=== PATIENT | male | born 1935 | race Caucasian/White ===

== ENCOUNTER → 2023-11-02 10:18 | Outpatient (REF) | payer MEDICARE, OTHER, SELFPAY | LOC: MRI 3T 10:18 | PROVIDERS: ATTENDING PHYSICIAN Physician Assistant; FAMILY PHYSICIAN Internal Medicine | DX: M54.16 Radiculopathy, lumbar region (principal) | CPT/HCPCS: 72148 ==

== ENCOUNTER → 2023-11-26 19:50 | Outpatient (REF) | payer MEDICARE, OTHER, SELFPAY | LOC: MRI 19:50 | PROVIDERS: ATTENDING PHYSICIAN Podiatrist Primary Podiatric Medicine; FAMILY PHYSICIAN Internal Medicine | DX: M86.171 Other acute osteomyelitis, right ankle and foot (principal) | CPT/HCPCS: 73718 ==

== ENCOUNTER → 2023-12-18 14:05 | Outpatient (REF) | payer MEDICARE, OTHER, SELFPAY | LOC: CLAB 14:05 | PROVIDERS: ATTENDING PHYSICIAN Student in an Organized Health Care Education/Training Program | DX: S92.222A Displaced fracture of lateral cuneiform of left foot, initial encounter for closed fracture (principal); S92.222B Displaced fracture of lateral cuneiform of left foot, initial encounter for open fracture | CPT/HCPCS: 88305 ==

== ENCOUNTER 2024-01-23 00:56 | Emergency (ER) | payer MEDICARE, OTHER, SELFPAY ==
[2024-01-23 01:10] VITALS: BP 151/83
--- NOTE | 2024-01-23 01:53 | ED.GENMED ---
History of Present Illness
General
Chief Complaint: Skin Problem
Source: patient, records and spouse
Exam Limitations: none
Time Seen by Provider: 01/23/24 01:33
Nursing documentation reviewed up to this point in time: agreed with
Travel History
Have you had any contact with someone who has COVID-19?: No
Do you have any symptoms of coronavirus? Fever > 100 degrees, chills, cough, shortness of breath, sore throat, loss of taste or smell, muscle aches, or headache?: No
History of Present Illness
History of Present Illness:
Patient is a 88-year-old diabetic male who presents to the emergency department with sudden onset of redness and swelling of his right leg approximately 3 to 4 hours ago. In October of this year on his right second toe the end of it was amputated
secondary to infection. Patient has done well since then. Patient states that sugars have been normal. Patient denies any nausea, vomiting. Patient has a good appetite. Patient denies any fever or chills. Patient denies any injuries although
he did have a tick that he removed from his right leg 3 to 4 days ago. Otherwise the patient denies any previous history or recent injuries.
Past History
Past History
ED Past Medical History: GERD, HTN, Hypercholesterolemia, NIDDM and Other (PNA, sleep apnea, BPH, kidney stones, diabetic neuropathy)
ED Past Surgical History: Orthopedic (Back surgery, Left Total knee) and Other (Rectal surgery)
Social History
Tobacco: Non-smoker
Alcohol: Occasional
Drug: None
Personal:
Living: with family
Review of Systems
Review of Systems
All Other Systems: ROS reviewed and negative except as documented in HPI and ROS
Constitutional: Reports no symptoms; Denies fever or chills
Respiratory: Reports no symptoms
Cardiac: Reports no symptoms
ABD/GI: Reports no symptoms
: Reports no symptoms
Musculoskeletal: Reports no symptoms
Skin: Reports other (Redness and swelling of his right lower leg)
Hematologic/Lymphatic: Reports no symptoms
Phy Exam
Physical Exam
Physical Exam:
Physical Exam
General: No apparent distress, alert and appropriate, well nourished, well hydrated
HENT: Normocephalic, supple with no lymphadenopathy, no thyromegaly
Eyes: Clear sclera, conjuctiva without injection
Heart: Regular rhythm and rate. No S3, S4. No murmur.
Lungs: No respiratory distress, no stridor, lung sounds clear and equal bilaterally
Abdomen: Soft, nontender, BS good
Neuro: Alert and oriented x 3, CN II - XII intact, no motor focality
Skin: no rash. Erythema of the right lower leg in a stocking fashion. On the dorsal, distal right second toe is an open area without erythema
Psychiatric: well kept. interactive and cooperative
Extremities: No cyanosis, tenderness, Good and equal peripheral pulses. Swelling of the right lower leg.
Scores
Heart Failure Risk
Heart Failure Risk Score: Not Applicable
Heart Score for Chest Pain Patients
STEMI patient?: Not applicable
Withdrawal Assessment of Alcohol
Withdrawal Assessment Completed?: Not applicable
Course
Orders/Labs/Results
Orders:
Orders
01/23/24 02:49
Complete Blood Count/With Diff Urgent
Comprehensive Metabolic Panel Urgent
[facility] Progressive Urgent
01/23/24 03:32
Doxycycline [Vibramycin] 100 mg PO NOW STA
Abnormal Lab Results
01/23/24
02:49
WBC 11.0 H 10^3/uL
(4.8-10.8)
RBC 4.54 L 10^6/uL
(4.70-6.10)
MCV 95.8 H fL
(80.0-94.0)
MCH 31.5 H pg
(27.0-31.0)
MCHC 32.9 L g/dL
(33.0-37.0)
MPV 10.8 H fL
(7.4-10.4)
Absolute Neuts (auto) 7.9 H 10^3/uL
(1.4-6.5)
Absolute Monos (auto) 1.1 H 10^3/uL
(0.1-0.6)
Lymphocytes % 13.2 L %
(20.5-51.1)
Monocytes % 10.0 H %
(1.7-9.3)
Chloride 108 H mmol/L
(98-107)
BUN 23 H mg/dl
(9-20)
Glucose 132 H mg/dl
(70-99)
01/23/24 02:49
01/23/24 02:49
Vital Signs
Initial and Last Documented VS:
Initial Vital Signs
Temp Pulse Resp BP Pulse Ox
98.6 F 65 22 151/83 95
01/23/24 01:10 01/23/24 01:10 01/23/24 01:10 01/23/24 01:10 01/23/24 01:10
Last Documented Vital Signs
Temp Pulse Resp BP Pulse Ox
98.6 F 65 22 151/83 95
01/23/24 01:10 01/23/24 01:10 01/23/24 01:10 01/23/24 01:10 01/23/24 01:10
*Pulse Oximetry
Patient hypoxic: no
*EKG
Interpreted by ED Provider?: NA
*Middleware Systems Architect Interpretation
Rate: Middleware Systems Architect- N/A
*Critical Care Note
Total Time (30-74mins, 75-104mins- exclusive of procedures): Not Applicable
ED Attending Note
-
Portions of this chart may have been created with voice recognition software.� Occasional wrong word or��sound alike� substitutions may have occurred due to the inherent limitations of voice recognition software.
Discharge Plan
Departure
Patient Disposition: Home (Routine Discharge)
Date of Disposition: 01/23/24
Time of Disposition: 03:33
Patient with high blood pressure during this ER visit?: Yes
Condition: Good
Covid-19: Not Applicable
Discharge Problem:
Cellulitis
Instructions: Cellulitis (Skin Infection), Adult (DC), BLOOD PRESSURE
Prescriptions:
New
doxycycline monohydrate 100 mg capsule
100 mg PO BID Qty: 20 0RF
No Action
atorvastatin 10 mg Tablet
10 mg PO HS
meloxicam 15 mg Tablet
15 mg PO DAILY
metformin 1,000 mg Tablet
1,000 mg PO BID@0800,1700
pantoprazole 40 mg Tablet,Delayed Release (Dr/Ec)
40 mg PO DAILY
gabapentin 100 mg capsule
100 mg PO DAILY
losartan-hydrochlorothiazide 50-12.5 mg Tablet
1 tab PO DAILY
tramadol 50 mg tablet
50 mg PO TID PRN (Reason: severe pain) Qty: 10 0RF
amoxicillin-pot clavulanate [Augmentin] 500-125 mg tablet
1 tab PO Q12H Qty: 30 0RF
Referrals:
Alexi Johnson MD [Family Provider] - Follow up in 2-3 days
Activity Restrictions/Additional Instructions:
Continue present medications and therapy. Make sure to keep your leg elevated. Any increasing swelling, pain or fever please return
Interventions
Interventions:
*Risk Screen - Suicide Last Done: 01/23/24 02:40
*General Assessment Last Done: 01/23/24 02:40
*Neglect/Abuse Screening Last Done: 01/23/24 02:40
*ED COVID-19 Vaccine History Last Done: 01/23/24 02:40
Discharge Date and Time
Print Language: DANISH
[2024-01-23 02:58] LABS: % Basophils 0.5 % (0-2); % Eosinophils 3.6 % (0-6); % Immature Granulocytes 0.3 % (0-0.5); % Lymphocytes 13.2 % (20.5-51.1); % Neutrophils 72.4 % (42.2-75.2); Absolute Basophils 0.1 10^3/uL (0-0.2); Absolute Eosinophils 0.4 10^3/uL (0-0.7); Absolute Lymphocytes 1.5 10^3/uL (1.2-3.4); Absolute Monocytes 1.1 10^3/uL (0.1-0.6); Absolute Neutrophils 7.9 10^3/uL (1.4-6.5); Hematocrit 43.5 % (39.0-52.0); Hemoglobin 14.3 g/dL (13.0-18.0); Mean Corp Hgb Conc. 32.9 g/dL (33.0-37.0); Mean Corpuscular Hgb 31.5 pg (27.0-31.0); Mean Corpuscular Volume 95.8 fL (80.0-94.0); Mean Platelet Volume 10.8 fL (7.4-10.4); Nucleated Red Blood Cells % 0 % (-); Platelet Count 193 10^3/uL (130-400); Red Blood Cell Count 4.54 10^6/uL (4.70-6.10); Red Cell Dist. Width 14.5 % (11.5-14.5)
[2024-01-23 03:19] LABS: ALT (SGPT) 14 U/L (0-50); AST (SGOT) 19 U/L (17-59); Albumin 3.9 g/dl (3.5-5.0); Alkaline Phosphatase 73 U/L (38-126); Blood Urea Nitrogen 23 mg/dl (9-20); Calcium 9.5 mg/dl (8.4-10.2); Carbon Dioxide 22 mmol/L (22-30); Chloride 108 mmol/L (98-107); Glucose 132 mg/dl (70-99); Sodium 141 mmol/L (135-145); Total Bilirubin 0.7 mg/dl (0.2-1.3); Total Protein 6.6 g/dl (6.3-8.2); eGFR > 60.00
[2024-01-23] MEDS: VIBRAMYCIN 100 MG PO (03:47)
[2024-01-26 16:39] LABS: Lyme Antibody Screen, EIA Negative (Negative)
== END 2024-01-23 03:50 | disposition home or self-care (01) ==
LOC: EMR 00:56
PROVIDERS: EMERGENCY PHYSICIAN Emergency Medicine; FAMILY PHYSICIAN Internal Medicine
DX: L03.115 Cellulitis of right lower limb (principal); I10 Essential (primary) hypertension
CPT/HCPCS: 99283; 80053; 85025; 86618

== ENCOUNTER 2024-02-15 07:57 | Emergency (ER) | payer MEDICARE, OTHER, SELFPAY ==
[2024-02-15 07:59] VITALS: BP 177/89
--- NOTE | 2024-02-15 08:58 | ED.GENMED ---
History of Present Illness
General
Chief Complaint: Bowel Problem
Source: patient and family (Daughter)
Exam Limitations: none
Time Seen by Provider: 02/15/24 08:17
Nursing documentation reviewed up to this point in time: agreed with
History of Present Illness
History of Present Illness:
The patient is a 88-year-old man with a past medical history of diabetes, hypertension, hyperlipidemia and a partial prostatectomy who comes in with complaints of difficulty passing his urine for 2 days. Patient reports that he is passing urine but
small bits at a time. In addition, he reports he was unable to have a bowel movement today. He had a normal bowel movement yesterday. Patient reports that his abdomen feels more distended but he does not have any abdominal pain. He denies
nausea, vomiting and diarrhea. Patient reports that he is starting to have left lower back pain and thinks he might be passing a kidney stone.
Past History
Past History
ED Past Medical History: GERD, HTN, Hypercholesterolemia, NIDDM and Other (PNA, sleep apnea, BPH, kidney stones, diabetic neuropathy)
ED Past Surgical History: Orthopedic (Back surgery, Left Total knee), Urological (Partial prostatectomy) and Other (Rectal surgery, )
Social History
Tobacco: Non-smoker
Alcohol: Occasional
Drug: None
Personal:
Living: with family
Employment: Other
Family History
Family History: Other
Review of Systems
Review of Systems
Allergies reviewed?: Yes
All Other Systems: ROS reviewed and negative except as documented in HPI and ROS
Constitutional: Reports no symptoms
EENT: Reports no symptoms
Respiratory: Reports no symptoms
Cardiac: Reports no symptoms
ABD/GI: Reports constipated
: Reports flank pain, difficulty voiding and urgency
Musculoskeletal: Reports no symptoms
Skin: Reports no symptoms
Neurological: Reports no symptoms
Endocrine: Reports no symptoms
Hematologic/Lymphatic: Reports no symptoms
Psychiatric: Reports no symptoms
Phy Exam
Physical Exam
Physical Exam:
Physical Exam
General: no apparent distress, not acutely ill. Well appearing
Neck: supple. no meningeal signs. normal psoterior pharynx
Heart: s1/s2 regular rate and rhythm, no murmur. equal radial pulses.
Lungs: no acute respiratory distress. clear bilaterally
Abdomen: Normal bowel sounds. Abdomen is distended but soft. Nontender throughout. No pulsatile mass.
Neuro: alert and oriented. no focal neurological deficits
Skin: no rash
Psychiatric: well kept. interactive and cooperative
Extremities: no edema. no calf tenderness. negative homans. good distal pulses
Course
Orders/Labs/Results
Orders:
Orders
02/15/24 08:56
Bladder Scan- Treatment ONCE
02/15/24 09:05
CT Abd/pel Without Iv Or Oral Urgent
Comment:
Reason For Exam: L flank pain
02/15/24 09:08
Complete Blood Count/With Diff Urgent
Comprehensive Metabolic Panel Urgent
02/15/24 10:01
0.9% Sodium Chloride 500 ml [Nss] 500 ml IV BOLUS
02/15/24 10:46
Urinalysis Reflex To Culture Urgent
Date Specimen was Collected: 02/15/24
Time Specimen was Collected: 10:45
Urine Microscopic Reflex Cult Urgent
Urine Culture Urgent
MARIELENA Source: U
Specimen Description:
Date Specimen was Collected: 02/15/24
Time Specimen was Collected: 10:45
02/15/24 12:04
Amoxicillin 875 mg/Clav 125 mg [Augmentin 875 mg/125 mg] 1 tablet PO NOW STA
Abnormal Lab Results
02/15/24 02/15/24
09:08 10:46
MCV 96.8 H fL
(80.0-94.0)
MCHC 31.4 L g/dL
(33.0-37.0)
Absolute Monos (auto) 0.7 H 10^3/uL
(0.1-0.6)
Immature Gran % 0.6 H %
(0-0.5)
Lymphocytes % 17.4 L %
(20.5-51.1)
BUN 25 H mg/dl
(9-20)
Glucose 112 H mg/dl
(70-99)
Urine Ketones Trace A
(Negative)
Ur Occult Blood Reflex 4+ A
(Negative)
Leukocyte Esterase Rfl Trace A
(Negative)
Urine RBC 70-80 A /HPF
(0-2)
Urine WBC (Reflex) 11-15 A /HPF
(0-5)
Urine Bacteria (Reflex) Few A
(Negative)
Urine Albumin (Reflex) 1+ A
(Neg - Trace)
02/15/24 09:08
02/15/24 09:08
Vital Signs
Initial and Last Documented VS:
Initial Vital Signs
Pulse Resp BP Pulse Ox
58 16 177/89 97
02/15/24 07:59 02/15/24 07:59 02/15/24 07:59 02/15/24 07:59
Last Documented Vital Signs
Pulse Resp BP Pulse Ox
63 16 162/90 97
02/15/24 12:22 02/15/24 12:22 02/15/24 12:22 02/15/24 12:22
MDM/Problems Addressed
Differential Diagnosis Includes:
Acute urinary retention, acute constipation, renal colic, UTI
MDM/Problems Addressed:
Patient presents with acute urinary retention and constipation
Chronic conditions affecting care:
Enlarged prostate can cause difficulty passing urine. Patient also has kidney stones which could create UTI and difficulty urinating
Chronic conditions affecting care: DM and Other (BPH, kidney stones)
Acute Exacerbation and/or Progression of Chronic Illness:
Patient may have acute on chronic urinary retention due to enlarged prostate
Acute Exacerbation and/or Progression of Chronic Illness: DM
*Radiology
Radiology exam reviewed: radiology read reviewed
*Pulse Oximetry
Patient hypoxic: no
*EKG
Interpreted by ED Provider?: NA
*Magazine Feeder Interpretation
Rate: normal
Interpretation: normal
Rhythm: sinus
*Critical Care Note
Total Time (30-74mins, 75-104mins- exclusive of procedures): Not Applicable
Data Reviewed
Review of Other/Old Records Reveals: Discharge Summary (Discharge summary reviewed from 10/2022 when patient was admitted for urosepsis)
Source: patient and family (Daughter)
Patient Management
Social determinants of health affecting care: Living situation and Strong social support
Escalation/DeEscalation of care consider admission/obs:
Patient remains extremely well and comfortable appearing. He has had no nausea, vomiting, fevers or chills. His white blood cell count is normal. Patient now urinating better and had a bowel movement in the ED. Abdomen remains completely soft.
Given patient has symptoms of difficulty urinating and risk of urosepsis, decision made to start patient on antibiotics.
ED Attending Note
-
Portions of this chart may have been created with voice recognition software.� Occasional wrong word or��sound alike� substitutions may have occurred due to the inherent limitations of voice recognition software.
Discharge Plan
Departure
Patient Disposition: Home (Routine Discharge)
Date of Disposition: 02/15/24
Time of Disposition: 12:04
Patient with high blood pressure during this ER visit?: Yes
Condition: Good
Covid-19: Not Applicable
Discharge Problem:
Acute UTI (urinary tract infection)
Instructions: Urinary Tract Infection, Adult ED, BLOOD PRESSURE
Prescriptions:
New
amoxicillin-pot clavulanate 875-125 mg tablet
1 tab PO BID Qty: 13 0RF
No Action
atorvastatin 10 mg Tablet
10 mg PO HS
meloxicam 15 mg Tablet
15 mg PO DAILY
metformin 1,000 mg Tablet
1,000 mg PO BID@0800,1700
pantoprazole 40 mg Tablet,Delayed Release (Dr/Ec)
40 mg PO DAILY
gabapentin 100 mg capsule
100 mg PO DAILY
losartan-hydrochlorothiazide 50-12.5 mg Tablet
1 tab PO DAILY
tramadol 50 mg tablet
50 mg PO TID PRN (Reason: severe pain) Qty: 10 0RF
amoxicillin-pot clavulanate [Augmentin] 500-125 mg tablet
1 tab PO Q12H Qty: 30 0RF
doxycycline monohydrate 100 mg capsule
100 mg PO BID Qty: 20 0RF
Referrals:
Osmar Suazo MD [Active] - (Call tomorrow to make an appointment to see within 1 week)
Alexi Johnson MD [Family Provider] -
Activity Restrictions/Additional Instructions:
Return immediately with any vomiting or fever. Please follow-up with your urologist within 1 week
Interventions
Interventions:
*Risk Screen - Suicide Last Done: 02/15/24 08:50
*General Assessment Last Done: 02/15/24 08:50
*Neglect/Abuse Screening Last Done: 02/15/24 08:50
ED- Fall Risk Assessment Last Done: 02/15/24 12:23
*ED COVID-19 Vaccine History Last Done: 02/15/24 07:59
*Nursing Disposition Last Done: 02/15/24 12:23
PN-Vypwyh-Wuycsoggzd Assessment Last Done: 02/15/24 08:50
Discharge Date and Time
Print Language: BOLIVIAN
[2024-02-15 09:20] LABS: % Basophils 0.6 % (0-2); % Eosinophils 2.6 % (0-6); % Immature Granulocytes 0.6 % (0-0.5); % Lymphocytes 17.4 % (20.5-51.1); % Neutrophils 69.8 % (42.2-75.2); Absolute Eosinophils 0.2 10^3/uL (0-0.7); Absolute Lymphocytes 1.3 10^3/uL (1.2-3.4); Absolute Monocytes 0.7 10^3/uL (0.1-0.6); Absolute Neutrophils 5.1 10^3/uL (1.4-6.5); Hematocrit 45.5 % (39.0-52.0); Hemoglobin 14.3 g/dL (13.0-18.0); Mean Corp Hgb Conc. 31.4 g/dL (33.0-37.0); Mean Corpuscular Hgb 30.4 pg (27.0-31.0); Mean Corpuscular Volume 96.8 fL (80.0-94.0); Mean Platelet Volume 10.4 fL (7.4-10.4); Nucleated Red Blood Cells % 0 % (-); Platelet Count 189 10^3/uL (130-400); Red Cell Dist. Width 14.4 % (11.5-14.5); White Blood Cell Count 7.2 10^3/uL (4.8-10.8)
[2024-02-15 09:31] LABS: ALT (SGPT) 16 U/L (0-50); AST (SGOT) 23 U/L (17-59); Alkaline Phosphatase 73 U/L (38-126); Blood Urea Nitrogen 25 mg/dl (9-20); Carbon Dioxide 25 mmol/L (22-30); Chloride 107 mmol/L (98-107); Glucose 112 mg/dl (70-99); Potassium 4.2 mmol/L (3.5-5.1); Sodium 141 mmol/L (135-145); Total Protein 6.9 g/dl (6.3-8.2); eGFR > 60.00
[2024-02-15] MEDS: NSS 500 IV (10:05)
[2024-02-15 10:15] VITALS: BP 171/93
[2024-02-15 11:08] LABS: Urine Albumin 1+ (Neg - Trace); Urine Bilirubin Negative (Negative); Urine Character Clear (Clear); Urine Color Yellow; Urine Glucose Negative (Negative); Urine Ketone Trace (Negative); Urine Leukocyte Trace (Negative); Urine Nitrite Negative (Negative); Urine Occult Blood 4+ (Negative); Urine Urobilinogen Negative (Neg - 1+)
[2024-02-15 11:35] VITALS: BP 168/74
[2024-02-15 11:41] LABS: Urine Squamous Cell 16-20 /LPF (Few); Urine Urothelial Cell 0-2 /LPF (FEW)
[2024-02-15 11:44] LABS: Urine Red Blood Cell 70-80 /HPF (0-2)
[2024-02-15 11:45] LABS: Urine Bacteria Few (Negative)
[2024-02-15] MEDS: AUGMENTIN 875 MG/125 MG 1 TABLET PO (12:18)
[2024-02-15 12:22] VITALS: BP 162/90
== END 2024-02-15 12:38 | disposition home or self-care (01) ==
LOC: EMR 07:57
PROVIDERS: EMERGENCY PHYSICIAN Emergency Medicine; FAMILY PHYSICIAN Internal Medicine
DX: N39.0 Urinary tract infection, site not specified (principal); E11.40 Type 2 diabetes mellitus with diabetic neuropathy, unspecified; I10 Essential (primary) hypertension; E78.00 Pure hypercholesterolemia, unspecified; K21.9 Gastro-esophageal reflux disease without esophagitis; G47.30 Sleep apnea, unspecified; N40.1 Benign prostatic hyperplasia with lower urinary tract symptoms; Z87.442 Personal history of urinary calculi; Z90.79 Acquired absence of other genital organ(s)
CPT/HCPCS: 99284; 96360; 74176; 80053; 81003; 81015; 85025; 87086

== ENCOUNTER 2024-03-04 14:02 | Emergency (ER) | payer MEDICARE, OTHER, SELFPAY ==
[2024-03-04 14:14] VITALS: BP 148/89
[2024-03-04 14:39] LABS: % Basophils 0.6 % (0-2); % Eosinophils 0.9 % (0-6); % Immature Granulocytes 0.4 % (0-0.5); % Lymphocytes 12.3 % (20.5-51.1); % Monocytes 9.1 % (1.7-9.3); % Neutrophils 76.7 % (42.2-75.2); Absolute Basophils 0.1 10^3/uL (0-0.2); Absolute Eosinophils 0.1 10^3/uL (0-0.7); Absolute Lymphocytes 1.1 10^3/uL (1.2-3.4); Absolute Monocytes 0.8 10^3/uL (0.1-0.6); Absolute Neutrophils 6.6 10^3/uL (1.4-6.5); Hematocrit 41.2 % (39.0-52.0); Mean Corpuscular Hgb 31.3 pg (27.0-31.0); Mean Platelet Volume 9.9 fL (7.4-10.4); Nucleated Red Blood Cells % 0 % (-); Platelet Count 256 10^3/uL (130-400); Red Blood Cell Count 4.48 10^6/uL (4.70-6.10); Red Cell Dist. Width 16.4 % (11.5-14.5); White Blood Cell Count 8.5 10^3/uL (4.8-10.8)
[2024-03-04 14:54] LABS: ALT (SGPT) 36 U/L (0-50); AST (SGOT) 48 U/L (17-59); Albumin 4.1 g/dl (3.5-5.0); Alkaline Phosphatase 73 U/L (38-126); Blood Urea Nitrogen 22 mg/dl (9-20); Carbon Dioxide 20 mmol/L (22-30); Chloride 108 mmol/L (98-107); Glucose 131 mg/dl (70-99); Sodium 137 mmol/L (135-145); Total Bilirubin 1.4 mg/dl (0.2-1.3); Total Protein 6.5 g/dl (6.3-8.2); eGFR > 60.00
--- NOTE | 2024-03-04 15:24 | ED.GENMED ---
History of Present Illness
General
Chief Complaint: Fatigue
Source: patient
Time Seen by Provider: 03/04/24 15:07
History of Present Illness
History of Present Illness:
88yoM with a history of hypertension, hyperlipidemia, and type 2 diabetes presenting for evaluation of brain fog. He has ongoing issues with insomnia. He was prescribed Klonopin 1mg by a physician in his PCP's office. He took half a tab for the
first time last night around 9am. He woke up this morning feeling 'off' with brain fog. He was outside with his family and continued to not feel well so EMS was called. He is feeling much better on initial exam. He does report shortness of breath.
He denies any chest pain, syncope, falls, visual changes, weakness, paresthesias.
Past History
Past History
ED Past Medical History: GERD, HTN, Hypercholesterolemia, NIDDM and Other (PNA, sleep apnea, BPH, kidney stones, diabetic neuropathy)
ED Past Surgical History: Orthopedic (Back surgery, Left Total knee), Urological (Partial prostatectomy) and Other (Rectal surgery, )
Social History
Tobacco: Non-smoker
Alcohol: Occasional
Drug: None
Personal:
Living: with family
Employment: Other
Family History
Family History: Other
Phy Exam
General Physical Exam
General Presentation: well appearing and no apparent distress
General age: appears stated age
General Skin: warm and dry
General Mental: alert
Cardiovascular Exam
Cardiovascular Exam: regular rate/rhythm and no murmur
Pulmonary Exam
Pulmonary Exam: lungs clear, no respiratory distress, no crackles and no wheezing
Neurological Exam
Neurological Exam: alert, no motor deficits, normal gait and other (CN 2-12 grossly intact. PERRL. 5/5 strength in all extremities. Normal finger to nose bilaterally. Normal gait. )
[place] Coma Scale
Eye Opening: Spontaneous
Verbal Response: Oriented
Motor Response: Obeys Commands
GCS Total Score: 15
Skin Exam
Skin Exam: normal color and warm/dry
Psychiatric Exam
Psychiatric Exam: normal mood/affect
Course
Orders/Labs/Results
Orders:
Orders
03/04/24 14:18
Electrocardiogram (*1) Urgent
Reason for Study: Fatigue / Weakness
EKG- Treatment ONCE
03/04/24 14:34
CMP [Comprehensive Metabolic Panel] Urgent
Complete Blood Count/With Diff Urgent
03/04/24 15:23
CR Chest - 2 Views Urgent
Comment:
Reason For Exam: SOB
03/04/24 15:32
Troponin I Urgent
Abnormal Lab Results
03/04/24 03/04/24
14:34 15:32
RBC 4.48 L 10^6/uL
(4.70-6.10)
MCH 31.3 H pg
(27.0-31.0)
RDW 16.4 H %
(11.5-14.5)
Absolute Neuts (auto) 6.6 H 10^3/uL
(1.4-6.5)
Absolute Lymphs (auto) 1.1 L 10^3/uL
(1.2-3.4)
Absolute Monos (auto) 0.8 H 10^3/uL
(0.1-0.6)
Neutrophils % 76.7 H %
(42.2-75.2)
Lymphocytes % 12.3 L %
(20.5-51.1)
Chloride 108 H mmol/L
(98-107)
Carbon Dioxide 20 L mmol/L
(22-30)
BUN 22 H mg/dl
(9-20)
Glucose 131 H mg/dl
(70-99)
Total Bilirubin 1.4 H mg/dl
(0.2-1.3)
Troponin I 0.080 H* ng/ml
03/04/24 14:34
03/04/24 14:34
Vital Signs
Initial and Last Documented VS:
Initial Vital Signs
Temp Pulse Resp BP Pulse Ox
97.6 F 79 18 148/89 94
03/04/24 14:14 03/04/24 14:14 03/04/24 14:14 03/04/24 14:14 03/04/24 14:14
Last Documented Vital Signs
Temp Pulse Resp BP Pulse Ox
97.6 F 79 18 148/89 94
03/04/24 14:14 03/04/24 14:14 03/04/24 14:14 03/04/24 14:14 03/04/24 14:14
MDM/Problems Addressed
Differential Diagnosis Includes:
88yoM here with brain fog and feeling off after taking Klonopin for the first time yesterday. Symptoms mostly resolved. Also c/o SOB. No CP or syncope. Patient is afebrile and hemodynamically stable. He is well-appearing in no acute distress.
Exam is reassuring and no focal neurologic deficit appreciated. Differential diagnosis includes but is not limited to: Medication side effect, dehydration, electrolyte abnormality, doubt ACS
Initial ED plan: Check cardiac labs, EKG, and chest x-ray.
*EKG
EKG Intrepretation Date: 03/04/24
Heart Rate: 77
Rate: normal
Rhythm: sinus
[place]: left axis deviation
Interval: first degree heart block
QRS Pattern: normal QRS
Ischemia: non-specific ST changes
*Critical Care Note
Total Time (30-74mins, 75-104mins- exclusive of procedures): Not Applicable
Update Note
Update Note:
Labs overall unremarkable with the exception of a mildly elevated troponin which appears to be chronic. Nonspecific ST changes on EKG although patient has no chest pain. On reassessment, he is completely asymptomatic and feels much better after
eating. Suspect his symptoms were related to a medication side effect. He feels comfortable with discharge. Advised close PCP follow-up and return to the ED with any new or worsening symptoms. Patient discharged in stable condition.
ED Attending Note
-
Portions of this chart may have been created with voice recognition software.� Occasional wrong word or��sound alike� substitutions may have occurred due to the inherent limitations of voice recognition software.
Discharge Plan
Departure
Patient Disposition: Home (Routine Discharge)
Date of Disposition: 03/04/24
Time of Disposition: 17:14
Patient with high blood pressure during this ER visit?: Yes
Discharge Problem:
Medication side effect
Instructions: Insomnia, Good sleep hygiene
Prescriptions:
No Action
atorvastatin 10 mg Tablet
10 mg PO HS
meloxicam 15 mg Tablet
15 mg PO HS
metformin 1,000 mg Tablet
1,000 mg PO HS
gabapentin 100 mg capsule
100 mg PO HS
clonazepam 1 mg tablet
1 mg PO HS
Patient Comments:
03/04/2024: [facility]/24, [facility] [address] [facility]
aspirin 81 mg Tablet,Delayed Release (Dr/Ec)
81 mg PO HS
losartan 100 mg tablet
100 mg PO HS
Referrals:
Alexi Johnson MD [Family Provider] -
Activity Restrictions/Additional Instructions:
Stop taking Klonopin.
Please follow-up with your family doctor tomorrow. Return to the ER with any new or worsening symptoms.
Interventions
Interventions:
*Risk Screen - Suicide Last Done: 03/04/24 15:14
*General Assessment Last Done: 03/04/24 14:14
*Neglect/Abuse Screening Last Done: 03/04/24 15:14
ED- Fall Risk Assessment Last Done: 03/04/24 17:17
*ED COVID-19 Vaccine History Last Done: 03/04/24 14:14
*Nursing Disposition Last Done: 03/04/24 17:17
Discharge Date and Time
Discharge Date/Time: 03/04/24 17:19
Print Language: [place]
== END 2024-03-04 17:19 | disposition home or self-care (01) ==
LOC: EMR 14:02
PROVIDERS: Physician Assistant; Student in an Organized Health Care Education/Training Program; EMERGENCY PHYSICIAN Emergency Medicine; FAMILY PHYSICIAN Internal Medicine
DX: R53.83 Other fatigue (principal); T42.4X5A Adverse effect of benzodiazepines, initial encounter; Y92.9 Unspecified place or not applicable; I10 Essential (primary) hypertension; E11.40 Type 2 diabetes mellitus with diabetic neuropathy, unspecified; E78.00 Pure hypercholesterolemia, unspecified; G47.00 Insomnia, unspecified; G47.30 Sleep apnea, unspecified; K21.9 Gastro-esophageal reflux disease without esophagitis; N40.0 Benign prostatic hyperplasia without lower urinary tract symptoms; Z87.442 Personal history of urinary calculi; Z90.79 Acquired absence of other genital organ(s)
CPT/HCPCS: 99283; 71046; 80053; 84484; 85025; 93005

== ENCOUNTER 2024-03-05 14:02 | Inpatient (IN) | payer MEDICARE, OTHER, SELFPAY ==
[2024-03-05] VITALS (9 sets, daily range): BP systolic 135–175; BP diastolic 75–120; BMI 30.7
[2024-03-05 11:30] LABS: % Basophils 0.6 % (0-2); % Eosinophils 0.4 % (0-6); % Immature Granulocytes 0.6 % (0-0.5); % Lymphocytes 9.7 % (20.5-51.1); % Monocytes 8.7 % (1.7-9.3); Absolute Basophils 0.1 10^3/uL (0-0.2); Absolute Immature Granulocytes 0.1 10^3/uL (0-0.05); Absolute Monocytes 0.9 10^3/uL (0.1-0.6); Absolute Neutrophils 8.4 10^3/uL (1.4-6.5); Hematocrit 44.8 % (39.0-52.0); Hemoglobin 14.8 g/dL (13.0-18.0); Mean Corpuscular Hgb 31.2 pg (27.0-31.0); Mean Corpuscular Volume 94.3 fL (80.0-94.0); Nucleated Red Blood Cells % 0 % (-); Platelet Count 258 10^3/uL (130-400); Red Blood Cell Count 4.75 10^6/uL (4.70-6.10); Red Cell Dist. Width 16.8 % (11.5-14.5); White Blood Cell Count 10.5 10^3/uL (4.8-10.8)
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
[2024-03-05 11:47] LABS: ALT (SGPT) 42 U/L (0-50); AST (SGOT) 51 U/L (17-59); Albumin 4.4 g/dl (3.5-5.0); Alkaline Phosphatase 77 U/L (38-126); Blood Urea Nitrogen 19 mg/dl (9-20); Calcium 9.5 mg/dl (8.4-10.2); Carbon Dioxide 24 mmol/L (22-30); Chloride 106 mmol/L (98-107); Glucose 151 mg/dl (70-99); Magnesium 1.8 mg/dl (1.6-2.3); Sodium 140 mmol/L (135-145); Total Bilirubin 1.8 mg/dl (0.2-1.3); Total Protein 6.9 g/dl (6.3-8.2); eGFR > 60.00
[2024-03-05 12:00] LABS: NT-proBNP 14200 pg/ml; Troponin I 0.074 ng/ml
--- NOTE | 2024-03-05 12:47 | HPS.HSE ---
Addendum entered and electronically signed by Homer Navarro MD 03/05/24 17:58:
Seen and examined by me independently in collaboration with the nurse practitioner Jeremi.
Past medical history/social history/medication/allergies reviewed.
Lab data and imaging data reviewed.
Patient presents with new onset of congestive heart failure. Already feeling improved with diuresis from IV Lasix given in the ER. Not hypoxic. No acute cardiac event based on EKG and troponins. Elevated BNP noted unclear if
A secondary response to distress from heart failure or a primary uncontrolled hypertension causing CHF. Patient states usually his blood pressure is much better controlled. Continue with diuresis optimize blood pressure medication as appropriate.
Check an echocardiogram. Consult cardiology.
Original Note:
Family Physician
-
Family Physician: Alexi Johnson
Chief Complaint
-
sob,weak,tired
History of Present Illness
88-year-old male with PMH for GERD, HTN, HLD, NIDDM, sleep apnea, BPH, kidney stones, presents emergency department due to dizzy and shortness of breath. patient felt very tired and weak today. denied fever, chills, runny nose congestion, cough.
denied chest pain. stated 3-4lbs weight gain in one month. stated worsening of b/l LE edema. denied abdominal pain,n,v,d. denied dysuria or hematuria.patient was at the PT today, where he was noted to have elevated BP
noted elevated BNP in ER. received a dose of Lasix in ER. admitting for further management.
Medical History
Past Medical History
Past Medical History: Reports Other
Additional Past Medical History:
type 2 DM
HTN
BPH
urinary retention
bladder stones
bacterial parostitis
Past Surgical History: Reports Other
Additional Past Surgical History:
back surgery
left knee surgery
prostatectomy
rectal surgery
Social History
Tobacco: Non-smoker
Alcohol: None
Drug: None
Personal:
Living: With Family
Family History
Family History: Not pertinent
Allergies / Home Medications
Allergies reflects when Allergies were last updated in [facility].
Home Medications with original date entered in [facility]
Allergy/Medication List:
Allergies
Allergy/AdvReac Type Severity Reaction Status Date / Time
cat dander Allergy Eyes swell Verified 03/05/24 10:37
Home Medications
atorvastatin 10 mg tablet 10 mg PO HS High cholesterol 04/17/22
meloxicam 15 mg tablet 15 mg PO HS INFLAMMATION 04/17/22
metformin 1,000 mg tablet 1,000 mg PO HS Diabetes 04/17/22
gabapentin 100 mg capsule 100 mg PO HS Neurological Condition 10/21/22
aspirin 81 mg tablet,delayed release 81 mg PO HS 03/04/24
clonazepam 1 mg tablet 1 mg PO HS 03/04/24
losartan 100 mg tablet 100 mg PO HS 03/04/24
Review of Systems
-
Constitutional: Reports Weight Gain
EENT: Reports No Symptoms
Respiratory: Reports Trouble Breathing
Cardiac: Reports No Symptoms
Abdomen/GI: Reports No Symptoms
: Reports No Symptoms
Musculoskeletal: Reports No Symptoms
Skin: Reports No Symptoms
Neurological: Reports No Symptoms
Endocrine: Reports No Symptoms
Hematologic/Lymphatic: Reports No Symptoms
Psych: Reports No Symptoms
Physical Exam
Vital Signs
Vital Signs
Temp Pulse Resp BP Pulse Ox
98.0 F 62 12 149/120 97
03/05/24 10:30 03/05/24 12:30 03/05/24 12:30 03/05/24 11:02 03/05/24 12:30
Physical Exam
General: Well Developed, Well Nourished and No Apparent Distress
HEENT: NormoCephalic, Moist mucous membranes and Atraumatic
Respiratory: Crackles
Cardiac: S1/S2 and Regular Rhythm; No Murmur or Rub
GI: Soft, Non Tender, Non Distended and Normal Bowel Sounds; No Organomegaly
Rectal: Deferred by Provider
Musculoskeletal: No Clubbing, No Cyanosis and Other (b/l LE edema)
Skin: No Rash
Neuro: AO x 3 and Nonfocal/grossly intact
Psych: Calm
Laboratory Results
-
03/05/24 11:19
03/05/24 11:19
Laboratory Results
Total Bilirubin 1.8 mg/dl (0.2-1.3) H 03/05/24 11:19
AST 51 U/L (17-59) 03/05/24 11:19
ALT 42 U/L (0-50) 03/05/24 11:19
Alkaline Phosphatase 77 U/L (38-126) 03/05/24 11:19
Troponin I 0.074 ng/ml H* 03/05/24 11:19
Data Reviewed
-
Diagnostic Radiology: Report Reviewed by me
Lab Data: Labs Reviewed by me
Impression/Plan
-
# CHF exacerbation
-BNP 17425
-chest x ray with Small right-sided pleural effusion with underlying atelectasis versus interstitial pneumonia at the right lung base
-Strict ALVAREZ
-Daily weight
-Fluid restriction
-Lasix 40 Mg daily
-Cardiology consult
-Obtain echo
#chornic trop elevation
-No complaints of chest pain
-Trend Trop
# Hyperlipidemia
-Statin continued
# Essential hypertension
-Blood pressure elevated in ER
-Losartan continued
# Type 2 diabetes
-Sliding scale
-Carb controlled diet
# Insomnia
-Trazodone continued
# DVT prophylaxis
-Lovenox subcu
# CODE STATUS
-Full code
[2024-03-05] MEDS: LASIX 40 MG IV (13:03)
--- NOTE | 2024-03-05 14:02 | CON.CAR ---
Addendum entered and electronically signed by Huseyin Garcia MD 03/05/24 18:34:
I saw and examined the patient.
The Safety And Health Manager's note was reviewed and I agree with the note.
Comment:
GEN: No distress, awake, Ox3
HEENT: supple, anicteric, mmm
LUNGS: Decreased breath sounds at bases
CV: Reg, S1/S2, 1/6 syst LSB, no gallop
ABD: soft, BS+, NT/ND
EXT: No edema
NEURO: Gross non-focal
SKIN: No rash
Plan:
He has a past medical history of hypertension, hyperlipidemia, recent UTI who presents with hypertensive urgency and acute heart failure with unknown ejection fraction. He follows with Dr. Dougherty of [facility] cardiology. Cardiac troponin is mildly
abnormal
EKG with normal sinus rhythm with nonspecific ST abnormalities. proBNP is markedly elevated at 14,000.
Check echocardiogram evaluate LVEF.
Start Lasix 40 mg IV twice daily. CHF education.
Continue Cozaar. Will likely add carvedilol. Will consider SLG 2 inhibitor.
Follow creatinine. Check records from Dr. Dougherty's office.
Original Note:
Consultation
Consultation Request
Date/Time Consultation Requested: 03/05/2024
Date/Time Consultation Performed: 03/05/2024
Requesting Provider: Dr. Navarro
Performing Provider: Tita Villarreal PA-C for Dr. Garcia
Reason for Consultation: Shortness of breath, heart failure
Medical History
-
History of Present Illness:
Patient is an 88-year-old male with past medical history significant for hypertension, hyperlipidemia, sleep apnea, BPH, kidney stones who presents to emergency department 03/05/2024 with complaints of shortness of breath, dizziness and feeling off
for several days. Patient was seen in ED in late January 2024 and treated for for UTI. [place] better however earlier this week patient started noting increased weakness, fatigue, lower extremity edema, shortness of breath, orthopnea and PND. He
complained of insomnia to his primary care physician and was prescribed Klonopin. Woke up feeling off 03/04/2024 and was evaluated in emergency department. It was felt to be side effect of the medication. He presents back 03/05/2024 with complaints
of ongoing fatigue, weakness, dizziness and shortness of breath. Patient was noted to be hypertensive with blood pressure of 170/106. EKG showed sinus rhythm at 81 bpm. Chest x-ray small right pleural effusion with underlying atelectasis versus
pneumonia at right lung base. proBNP noted to be elevated at 14,200. Troponin 0.074. Patient was provided IV Lasix 40 mg x 1 in emergency department. Patient denies prior history of coronary artery disease, heart failure. He does follow with
Dr. Ben Dougherty of [facility] cardiology
Past medical history:
Type 2 DM
HTN
Hyperlipidemia
Diabetic neuropathy
Sleep apnea
BPH status post partial prostatectomy October 2022
urinary retention
History of UTI
bladder stones
bacterial parostitis
Right second toe amputation
Left total knee replacement
Back surgery
Past Medical History
Past Medical History: Other (See HPI)
Past Surgical History: Orthopedic (Back surgery, left total knee replacement, right second toe amputation October 2023 ), Urological (Prostatectomy) and Other (Rectal surgery)
Social History
Tobacco: Non-Smoker
Alcohol: Occasional (rare)
Drug: None
Personal:
Living: With Family
Employment: Retired
Family History
Family History: Other (Denies family history of cardiac problems)
Allergies / Home Medications
Allergy/AdvReac Type Severity Reaction Status Date / Time
cat dander Allergy Eyes swell Verified 03/05/24 10:37
�Medication �Instructions �Recorded �Confirmed �Type
atorvastatin 10 mg tablet 10 mg PO HS High cholesterol 04/17/22 03/05/24 History
meloxicam 15 mg tablet 15 mg PO HS INFLAMMATION 04/17/22 03/05/24 History
metformin 1,000 mg tablet 1,000 mg PO HS Diabetes 04/17/22 03/05/24 History
gabapentin 100 mg capsule 200 mg PO HS Neurological Condition 10/21/22 03/05/24 History
aspirin 81 mg tablet,delayed 81 mg PO HS 03/04/24 03/05/24 History
release
losartan 100 mg tablet 100 mg PO HS 03/04/24 03/05/24 History
ibuprofen 200 mg tablet (Advil) 200 mg PO BIDPRN PRN mild pain 03/05/24 03/05/24 History
trazodone 50 mg tablet 50 mg PO HS 03/05/24 03/05/24 History
Review of Systems
-
History Source: Patient
All other systems: Negative unless noted
Physical Exam
Vital Signs
Temp Pulse Resp BP Pulse Ox
98.0 F 62 12 149/120 97
03/05/24 10:30 03/05/24 12:30 03/05/24 12:30 03/05/24 11:02 03/05/24 12:30
GEN: No distress, awake, Ox3, sitting on side of bed
HEENT: supple, anicteric, mmm
LUNGS: Decreased BS at right base with crackles, faint crackles at left base otherwise CTA
CV: Reg, S1/S2, 1/6 syst murmur, no rubs or gallops
ABD: soft, BS+, NT/ND
EXT: +2 bilateral lower extremity edema Rt>Lt; RLE skin changes c/w chronic venous stasis
NEURO: Gross non-focal
SKIN: No rash, warm, dry
Lab Results
03/05/24 11:19
03/05/24 11:19
Troponin I 0.074 ng/ml H* 03/05/24 11:19
Czl-Y-Tewlkmhllcr Pept 23780 pg/ml 03/05/24 11:19
Impression / Plan
-
PCP: Alexi Johnson
Barrel Straightener:Ben Dougherty, [facility] Cardiology
Impression:
Presents 03/05/2024 with shortness of breath, dizziness, weakness and brain fog
Acute heart failure with preserved ejection fraction, proBNP 14,200
Hypertensive urgency
Abnormal troponin, initial 0.074
Type 2 DM
HTN
Hyperlipidemia
Diabetic neuropathy
Syncope 2013
Sleep apnea
BPH status post partial prostatectomy October 2022
urinary retention
History of UTI
bladder stones
bacterial parostitis
Right second toe amputation
Left total knee replacement
Back surgery
Echocardiogram 2013: EF 60 to 65% with mild AI
Outpatient monitor/[employer] 2015: Normal sinus rhythm/sinus bradycardia, no complex arrhythmias
Plan:
-Presents 03/05/2024 with shortness of breath, dizziness, weakness and brain fog.
-Acute heart failure with preserved ejection fraction, proBNP 14,200
-Chest x-ray with small right pleural effusion with underlying atelectasis versus pneumonia at right lung base
-Looks volume overloaded on exam
-Patient received IV Lasix 40 mg in emergency department with great diuretic response
-Continue diuresis with IV Lasix 40 mg daily
-Heart failure education
-Check echocardiogram
-Hypertensive urgency with blood pressure of 170/106 on arrival
-Patient maintained on losartan 100 mg daily as outpatient.
-Continue to monitor and trend with IV diuresis
-Could consider adding amlodipine versus beta-eden pending results of echocardiogram
-Abnormal troponin, initial 0.074
-Denies chest pain and EKG without ischemic changes
-Per review of prior troponins appears to be chronically elevated during previous admissions/hospitalizations
-Trend to peak
-Suspect nonischemic myocardial injury secondary to acute heart failure and hypertensive urgency
-Continue atorvastatin for hyperlipidemia
-Diabetes with management per primary service
-Recent admission for UTI late January 2024. Consider rechecking urine given ongoing weakness and foggy thinking. Although mentation seems improved
Patient is followed by Dr. Ben Dougherty at [facility] cardiology. Records have been requested and reviewed
[facility] 03/05/2024:
Patient is an 88-year-old male with past medical history significant for hypertension, hyperlipidemia, sleep apnea, BPH, kidney stones who presents to emergency department 03/05/2024 with complaints of shortness of breath, dizziness and feeling off
for several days. Patient was seen in ED in late January 2024 and treated for for UTI. [place] better however earlier this week patient started noting increased weakness, fatigue, lower extremity edema, shortness of breath, orthopnea and PND. He
complained of insomnia to his primary care physician and was prescribed Klonopin. Woke up feeling off 03/04/2024 and was evaluated in emergency department. It was felt to be side effect of the medication. He presents back 03/05/2024 with complaints
of ongoing fatigue, weakness, dizziness and shortness of breath. Patient was noted to be hypertensive with blood pressure of 170/106. EKG showed sinus rhythm at 81 bpm. Chest x-ray small right pleural effusion with underlying atelectasis versus
pneumonia at right lung base. proBNP noted to be elevated at 14,200. Troponin 0.074. Patient was provided IV Lasix 40 mg x 1 in emergency department. Patient denies prior history of coronary artery disease, heart failure. He does follow with
Dr. Ben Dougherty of [facility] cardiology
Data Reviewed
-
EKG: Report Reviewed by me, Discussed with Physician, Discussed with Patient and Discussed with Family
Radiology: Report Reviewed by me, Discussed with Physician, Discussed with Patient and Discussed with Family
Labs: Labs Reviewed by me, Discussed with Physician and Discussed with Patient
Old Records: Requested
[2024-03-05 16:25] LABS: Glucose - Point of Care 127 mg/dl (70-99)
[2024-03-05] MEDS: NOVOLOG FLEXPEN-LOW RESISTANCE SC (16:50)
[2024-03-05 17:50] LABS: Troponin I 0.075 ng/ml
[2024-03-05] MEDS: LOVENOX 40 MG SC (18:00)
--- NOTE | 2024-03-05 19:56 | PTCARENOTE ---
Recieved pt form ED. AAOx3, VSS, Oriented to unit. Plan of care is ongoing.
[2024-03-05 21:29] LABS: Glucose - Point of Care 135 mg/dl (70-99)
[2024-03-05] MEDS: ASPIR LOW (ENTERIC COATED) 81 MG PO (22:04)
[2024-03-05] MEDS: GLUCOPHAGE 1000 MG PO (22:04)
[2024-03-05] MEDS: MELATONIN 5 MG PO (22:04)
[2024-03-05] MEDS: LIPITOR 10 MG PO (22:05)
[2024-03-05] MEDS: NEURONTIN 200 MG PO (22:05)
[2024-03-05] MEDS: COZAAR 100 MG PO (22:06)
[2024-03-05] MEDS: MOBIC 15 MG PO (22:50)
[2024-03-05] MEDS: COLACE 100 MG PO (23:17)
[2024-03-06] VITALS (7 sets, daily range): BP systolic 124–152; BP diastolic 68–88; PULSE 74; O2SAT 96; BMI 30.2
[2024-03-06 00:49] LABS: Troponin I 0.089 ng/ml
--- NOTE | 2024-03-06 06:55 | PTCARENOTE ---
Pt had 25 beat run of Vtach w/ SOB. Pt denies palpations, dizziness, and lightheadedness. VS 146/68 bp, 82 hr, 20 resp, sating 98% on room air. [facility] made aware- no new orders at this time with pending morning labs. Pt is resting comfortably sitting
in chair and stated he is hungry for breakfast w/ call sánchez within reach.
[2024-03-06 07:58] LABS: Glucose - Point of Care 152 mg/dl (70-99)
[2024-03-06 08:32] LABS: Hematocrit 44.5 % (39.0-52.0); Hemoglobin 15.2 g/dL (13.0-18.0); Mean Corp Hgb Conc. 34.2 g/dL (33.0-37.0); Mean Corpuscular Hgb 31.8 pg (27.0-31.0); Mean Corpuscular Volume 93.1 fL (80.0-94.0); Mean Platelet Volume 10.5 fL (7.4-10.4); Platelet Count 245 10^3/uL (130-400); Red Blood Cell Count 4.78 10^6/uL (4.70-6.10); Red Cell Dist. Width 16.1 % (11.5-14.5)
[2024-03-06 08:56] LABS: Troponin I 0.087 ng/ml
[2024-03-06] MEDS: LASIX 40 MG IV ×2 (08:56→16:20)
[2024-03-06 09:09] LABS: ALT (SGPT) 37 U/L (0-50); AST (SGOT) 38 U/L (17-59); Albumin 4.2 g/dl (3.5-5.0); Alkaline Phosphatase 86 U/L (38-126); Blood Urea Nitrogen 19 mg/dl (9-20); Calcium 9.3 mg/dl (8.4-10.2); Carbon Dioxide 25 mmol/L (22-30); Chloride 105 mmol/L (98-107); Direct Bilirubin 0.7 mg/dl (0.0-0.4); Estimated Creatinine Clearance 75 ml/min; Glucose 121 mg/dl (70-99); HDL Cholesterol 54 mg/dl; LDL Cholesterol, Calculated 31 mg/dl; Magnesium 1.7 mg/dl (1.6-2.3); Potassium 3.5 mmol/L (3.5-5.1); Sodium 142 mmol/L (135-145); Total Bilirubin 2.1 mg/dl (0.2-1.3); Total Cholesterol 105 mg/dl (50-199); Total Protein 6.5 g/dl (6.3-8.2); Triglyceride 101 mg/dl (10-149); Very Low Density Lipoprotein 20 mg/dl (0-30); eGFR > 60.00
--- NOTE | 2024-03-06 09:27 | W.PN.CARDCBS ---
Today's Communication / Plan
-
Increase lasix to 40 mg IV BID. proBNP is markedly elevated at 14,000.
Echo is pending.
Follow creatinine.
EKG with normal sinus rhythm with nonspecific ST abnormalities.
Cont medical therapy of nonMI trop 0.089 peak.
HF education.
Continue Cozaar. Add carvedilol 3.125 mg BID.
Impression / Plan
-
.
PCP: Alexi Johnson
Stock Room Manager:Ben Dougherty, [facility] Cardiology
Impression:
Presents 03/05/2024 with shortness of breath, dizziness, weakness and brain fog
Acute heart failure with preserved ejection fraction, proBNP 14,200
Hypertensive urgency
Abnormal troponin, initial 0.074
Type 2 DM with diabetic neuropathy
HTN
Hyperlipidemia
Syncope 2013
Sleep apnea
BPH status post partial prostatectomy October 2022
Urinary retention with hx UTI
Bladder stones
Bacterial parostitis
Right second toe amputation
Left total knee replacement
Back surgery
Echocardiogram 2013: EF 60 to 65% with mild AI
Outpatient monitor/CardioNet 2015: Normal sinus rhythm/sinus bradycardia, no complex arrhythmias
Plan:
HPI: Presents 03/05/2024 with shortness of breath, dizziness, weakness and brain fog.
He has a past medical history of hypertension, hyperlipidemia, recent UTI who presents with hypertensive urgency and acute heart failure with unknown ejection fraction. He follows with Dr. Dougherty of [facility] cardiology. Cardiac troponin is mildly
abnormal
Increase lasix to 40 mg IV BID. proBNP is markedly elevated at 14,000.
Echo is pending.
Follow creatinine.
EKG with normal sinus rhythm with nonspecific ST abnormalities.
Cont medical therapy of nonMI trop 0.089 peak.
HF education.
Continue Cozaar. Add carvedilol 3.125 mg BID.
May consider SLG 2 inhibitor prior to d/c
Cont statin
Diabetes with management per primary service
Await records from Dr. Dougherty's office.
Discussed with primary service.
HPI 03/05/2024:
Patient is an 88-year-old male with past medical history significant for hypertension, hyperlipidemia, sleep apnea, BPH, kidney stones who presents to emergency department 03/05/2024 with complaints of shortness of breath, dizziness and feeling off
for several days. Patient was seen in ED in late January 2024 and treated for for UTI. [place] better however earlier this week patient started noting increased weakness, fatigue, lower extremity edema, shortness of breath, orthopnea and PND. He
complained of insomnia to his primary care physician and was prescribed Klonopin. Woke up feeling off 03/04/2024 and was evaluated in emergency department. It was felt to be side effect of the medication. He presents back 03/05/2024 with complaints
of ongoing fatigue, weakness, dizziness and shortness of breath. Patient was noted to be hypertensive with blood pressure of 170/106. EKG showed sinus rhythm at 81 bpm. Chest x-ray small right pleural effusion with underlying atelectasis versus
pneumonia at right lung base. proBNP noted to be elevated at 14,200. Troponin 0.074. Patient was provided IV Lasix 40 mg x 1 in emergency department. Patient denies prior history of coronary artery disease, heart failure. He does follow with
Dr. Ben Dougherty of [facility] cardiology
Progress Note - Stock Room Manager
Subjective
Date of Service: March 06, 2024
Pt seen and examined. No chest pain or shortness of breath.
Objective
Labs:
03/06/24 07:15
03/06/24 07:15
Labs
Hgb 15.2 g/dL (13.0-18.0) 03/06/24 07:15
Hct 44.5 % (39.0-52.0) 03/06/24 07:15
Plt Count 245 10^3/uL (130-400) 03/06/24 07:15
Sodium 142 mmol/L (135-145) 03/06/24 07:15
Potassium 3.5 mmol/L (3.5-5.1) 03/06/24 07:15
BUN 19 mg/dl (9-20) 03/06/24 07:15
Creatinine 0.9 mg/dL (0.7-1.3) 03/06/24 07:15
Glucose 121 mg/dl (70-99) H 03/06/24 07:15
Troponins
03/05/24 03/05/24 03/06/24
11:19 17:02 00:11
Troponin I 0.074 H* 0.075 H* 0.089 H*
03/06/24
07:15
Troponin I 0.087 H*
Vital Signs and I&O:
Vital Signs
Temp Pulse Resp BP Pulse Ox
97.8 F 82 20 146/68 98
03/06/24 03:43 03/06/24 08:56 03/06/24 06:50 03/06/24 08:56 03/06/24 06:50
Vital Signs
Temp Pulse Resp BP Pulse Ox
97.8 F 82 20 146/68 98
03/06/24 03:43 03/06/24 08:56 03/06/24 06:50 03/06/24 08:56 03/06/24 06:50
Intake & Output
03/04/24 03/05/24 03/06/24 03/07/24
06:59 06:59 06:59 06:59
Intake Total 240 / 240
Output Total 300 / 300 800 / 800
Balance -60 / -60 -800 / -800
Physical Exam
Physical Exam
General: No acute distress, AAOX3
Neck: Negative JVD
Heart: Regular, Negative S3 positive S1/S2, Negative S4, No murmur
Lungs: CTA b/l, negative wheezes/rales/rhonchi
Abd: Positive BS, NT/ND, neg rebound/rigidity/guarding
Ext: Negative cyanosis/clubbing. B/l LE edema +1-2
Neuro: Nonfocal
[2024-03-06 09:34] LABS: TSH Reflex To Free T4 1.97 uIU/ml (0.47-4.68)
[2024-03-06] MEDS: NOVOLOG FLEXPEN-LOW RESISTANCE 1 UNITS SC ×2 (09:40→17:07)
[2024-03-06 10:58] LABS: Glycohemoglobin (HgbA1c) 6.8 % (4.0-5.6)
--- NOTE | 2024-03-06 11:06 | W.PN.HOSP.TC ---
Today's Communication/Plan
-
Continue with IV diuresis
Assessment / Plan
Assessment / Plan
#Acute CHF exacerbation - unknown EF
-BNP 42429
-chest x ray with Small right-sided pleural effusion with underlying atelectasis versus interstitial pneumonia at the right lung base
-Strict ALVAREZ
-Daily weight
-Fluid restriction
-cw Lasix 40 Mg BID
-Cardiology input noted
-Obtain echo
- Follow Cr
- Optimize BP
#chornic trop elevation
-No complaints of chest pain
-Trend Trop
# Hyperlipidemia
-Statin continued
# Essential hypertension
-Losartan continued
-Improved blood pressure since admission. Continue to optimize treatments as needed
# Type 2 diabetes
-Sliding scale
-Carb controlled diet
# Insomnia
-Trazodone continued
# DVT prophylaxis
-Lovenox subcu
# CODE STATUS
-Full code
[facility] cardiology Dr Saldaña this morning -cw diuresis and obtain ECHO
Anticipated Discharge: > 48 hours
Subjective/Interval History
-
Date of Service: March 06, 2024
He felt better with Lasix yesterday. This morning is feeling little short of breath. No chest pain.
Objective Data
-
Labs:
Laboratory Results
03/06/24
07:15
WBC 9.0
Hgb 15.2
Hct 44.5
Plt Count 245
Sodium 142
Potassium 3.5
Chloride 105
Carbon Dioxide 25
BUN 19
Creatinine 0.9
Glucose 121 H
Calcium 9.3
Total Bilirubin 2.1 H
AST 38
ALT 37
Alkaline Phosphatase 86
Vital Signs:
Vital Signs
Temp Pulse Resp BP Pulse Ox
97.8 F 82 20 146/68 98
03/06/24 03:43 03/06/24 08:56 03/06/24 06:50 03/06/24 08:56 03/06/24 08:55
I&O
03/05/24 03/06/24 03/07/24
06:59 06:59 06:59
Intake Total 240 / 240
Output Total 300 / 300 800 / 800
Balance -60 / -60 -800 / -800
Review of Systems
-
Constitutional: Denies Fever
EENT: Denies Sore Throat
Respiratory: Denies Cough
Abdomen/GI: Denies Nausea or Vomiting
Neuro: Denies Dizzy
Physical Exam
-
General: No Apparent Distress
HEENT: Moist Mucous Membranes
Respiratory: Crackles (Bibasilar crackles, more so in left base today) and Non Labored Respirations; Negative Wheezes or Accessory Resp Muscle Use
Cardiac: Regular Rhythm and S1/S2
GI: Soft
Musculoskeletal: Edema, Right Lower Extrem and Edema, Left Lower Extrem
Neuro: AO x 3
Psych: Calm
Data Reviewed
-
Labs: Labs Reviewed by me
[2024-03-06 11:51] LABS: Glucose - Point of Care 131 mg/dl (70-99)
[2024-03-06] MEDS: NOVOLOG FLEXPEN-LOW RESISTANCE SC (11:56)
[2024-03-06] MEDS: COREG 3.125 MG PO ×2 (12:02→20:39)
[2024-03-06 16:54] LABS: Glucose - Point of Care 194 mg/dl (70-99)
[2024-03-06] MEDS: LOVENOX 40 MG SC (17:07)
[2024-03-06] MEDS: XANAX 0.25 MG PO (20:38)
[2024-03-06] MEDS: MELATONIN 10 MG PO (20:46)
[2024-03-06 21:17] LABS: Glucose - Point of Care 116 mg/dl (70-99)
[2024-03-06] MEDS: LIPITOR 10 MG PO (22:05)
[2024-03-06] MEDS: MOBIC 15 MG PO (22:05)
[2024-03-06] MEDS: ASPIR LOW (ENTERIC COATED) 81 MG PO (22:05)
[2024-03-06] MEDS: GLUCOPHAGE 1000 MG PO (22:05)
[2024-03-06] MEDS: COZAAR 100 MG PO (22:06)
[2024-03-06] MEDS: NEURONTIN 200 MG PO (22:06)
[2024-03-07 03:09] VITALS: BP 119/56
[2024-03-07 06:00] VITALS: BMI 29.0
[2024-03-07 07:25] LABS: Glucose - Point of Care 111 mg/dl (70-99)
[2024-03-07 07:35] VITALS: BP 122/81
[2024-03-07] MEDS: NOVOLOG FLEXPEN-LOW RESISTANCE SC ×3 (07:38→16:50)
[2024-03-07 08:28] LABS: Blood Urea Nitrogen 21 mg/dl (9-20); Calcium 8.8 mg/dl (8.4-10.2); Carbon Dioxide 25 mmol/L (22-30); Chloride 102 mmol/L (98-107); Estimated Creatinine Clearance 67 ml/min; Glucose 92 mg/dl (70-99); Sodium 139 mmol/L (135-145); eGFR > 60.00
[2024-03-07] MEDS: COREG 3.125 MG PO ×2 (08:38→19:39)
[2024-03-07] MEDS: LASIX 40 MG IV ×2 (08:38→16:56)
--- NOTE | 2024-03-07 10:52 | W.PN.HOSP.TC ---
Addendum entered and electronically signed by Homer Navarro MD 03/07/24 12:01:
I saw and evaluated the patient. I reviewed the resident�s note and agree with findings and plan as documented in the resident�s note.
Improving right and lower extremity edema. Not short of breath. Continue diuresis. Check an echocardiogram tomorrow. Cardiology following.
Replete potassium.
Original Note:
Documented by User: Allan De Jesus MD, Resident 03/07/24 11:16
Today's Communication/Plan
-
We will continue to diurese the patient and follow troponin and proBNP to assess whether patient is still fluid overloaded.
Assessment / Plan
Assessment / Plan
-Acute CHF exacerbation - unknown EF -monitoring
BNP was 83744 on 03/05, will recheck values
Chest x ray with Small right-sided pleural effusion with underlying atelectasis versus interstitial pneumonia at the right lung base
Strict ALVAREZ
Daily weight
Fluid restriction
Continue Lasix 40 Mg BID
Cardiology input noted -they recommended adding carvedilol 3.125 mg twice daily. They were also considering adding a SGLT2 inhibitor prior to discharge.
Awaiting echo results
Follow Cr -steady at 0.9 on 03/07
Optimize BP
- Chronic trop elevation: Monitor
No complaints of chest pain
Trend Trop - troponins remain elevated at 0.087 on 03/06
- Hyperlipidemia: Stable
Statin continued
-Hypokalemia: Monitoring
Patient's potassium was 3.0 on 03/07 � repleted
- Essential hypertension: Stable
Losartan continued
Improved blood pressure since admission. Continue to optimize treatments as needed
- Type 2 diabetes: Stable
Sliding scale
Carb controlled diet
- Insomnia: Monitoring
Trazodone continued
- DVT prophylaxis:
Lovenox subcutaneous
# CODE STATUS
-Full code
Anticipated Discharge: > 48 hours
Subjective/Interval History
-
Date of Service: March 07, 2024
Met with patient at the bedside. Overall he is in a calm and pleasant mood. He spent a significant amount of time talking about how family is important to him and the importance of love in life. He offers no complaints and says that he feels
better than he did yesterday.
Objective Data
-
Labs:
Laboratory Results
03/07/24
06:01
Sodium 139
Potassium 3.0 L
Chloride 102
Carbon Dioxide 25
BUN 21 H
Creatinine 0.9
Glucose 92
Calcium 8.8
Vital Signs:
Vital Signs
Temp Pulse Resp BP Pulse Ox
98 F 70 20 122/81 95
03/07/24 07:35 03/07/24 08:38 03/07/24 07:35 03/07/24 08:38 03/07/24 07:35
I&O
03/06/24 03/07/24 03/08/24
06:59 06:59 06:59
Intake Total 240 / 240 1080 / 1080
Output Total 300 / 300 3575 / 3575
Balance -60 / -60 -2495 / -2495
Review of Systems
-
History Source: Patient
Constitutional: Reports No Symptoms
EENT: Reports No Symptoms Reported
Respiratory: Reports No Symptoms
Cardiac: Reports No Symptoms
Abdomen/GI: Reports No Symptoms
Breast: Reports No Symptoms
Genitourinary: Reports No Symptoms
Skin: Reports No Symptoms
Neuro: Reports No Symptoms
Endocrine: Reports No Symptoms
Hematologic / Lymphatic: Reports No Symptoms
Physical Exam
-
General: Well Developed, Well Nourished, No Apparent Distress and Comfortable
HEENT: Normocephalic, Atraumatic and Moist Mucous Membranes
Respiratory: Non Labored Respirations
Cardiac: Regular Rhythm and S1/S2
Breast: Deferred by me
GI: Soft, Nontender and Nondistended
Rectal: Deferred by Provider
Genito-urinary: Deferred by me
Musculoskeletal: Edema, Right Lower Extrem and Edema, Left Lower Extrem
Skin: Warm and Dry
Neuro: Awake, Alert, Oriented, AO x 3 and Nonfocal/Grossly Intact
Psych: Calm

Documented by User: Homer Navarro MD 03/07/24 12:00
Assessment / Plan
Assessment / Plan
-Acute CHF exacerbation - unknown EF -monitoring
BNP was 98854 on 03/05, will recheck values
Chest x ray with Small right-sided pleural effusion with underlying atelectasis versus interstitial pneumonia at the right lung base
Strict ALVAREZ
Daily weight
Fluid restriction
Continue Lasix 40 Mg BID
Cardiology input noted -they recommended adding carvedilol 3.125 mg twice daily. They were also considering adding a SGLT2 inhibitor prior to discharge.
Awaiting echo results
Follow Cr -steady at 0.9 on 03/07
Optimize BP
- Chronic trop elevation: suspect sec to non ischemic myocardial injury
No complaints of chest pain
- Hyperlipidemia: Stable
Statin continued
-Hypokalemia: Monitoring
Patient's potassium was 3.0 on 03/07 � repleted
- Essential hypertension: Stable
Losartan continued
Improved blood pressure since admission. Continue to optimize treatments as needed
- Type 2 diabetes: Stable
Sliding scale
Carb controlled diet
- Insomnia: Monitoring
Trazodone continued
- DVT prophylaxis:
Lovenox subcutaneous
# CODE STATUS
-Full code
[2024-03-07] MEDS: KCL 40 MEQ PO (11:04)
[2024-03-07 11:09] VITALS: BP 128/68
[2024-03-07 11:44] LABS: Glucose - Point of Care 144 mg/dl (70-99)
[2024-03-07 13:09] LABS: NT-proBNP 7640 pg/ml
--- NOTE | 2024-03-07 14:01 | W.PN.CARDCBS ---
Today's Communication / Plan
-
Will continue IV Lasix for another 24 hours. Continue Coreg and losartan.
Creat normal. replete K
Check echo in a.m. to evaluate LVEF.
Will need to check cost of Jardiance/Farxiga.
Impression / Plan
-
.
PCP: Alexi Johnson
Ict Trainer:Ben Dougherty, [facility] Cardiology
Impression:
Presents 03/05/2024 with shortness of breath, dizziness, weakness and brain fog
Acute heart failure with preserved ejection fraction, proBNP 14,200
Hypertensive urgency
Abnormal troponin, initial 0.074
Type 2 DM with diabetic neuropathy
HTN
Hyperlipidemia
Syncope 2013
Sleep apnea
BPH status post partial prostatectomy October 2022
Urinary retention with hx UTI
Bladder stones
Bacterial parostitis
Right second toe amputation
Left total knee replacement
Back surgery
Echocardiogram 2013: EF 60 to 65% with mild AI
Outpatient monitor/CardioNet 2015: Normal sinus rhythm/sinus bradycardia, no complex arrhythmias
Plan:
HPI: Presents 03/05/2024 with shortness of breath, dizziness, weakness and brain fog.
He has a past medical history of hypertension, hyperlipidemia, recent UTI who presents with hypertensive urgency and acute heart failure with unknown ejection fraction. He follows with Dr. Dougherty of [facility] cardiology. Cardiac troponin is mildly
abnormal
Cont lasix 40 mg IV BIDfor another 24 hours
Echo is AM.
Creat is normal.
EKG with normal sinus rhythm with nonspecific ST abnormalities.
Cont medical therapy of nonMI trop 0.089 peak.
HF education.
Continue Cozaar. carvedilol 3.125 mg BID.
check cost of SLG 2 inhibitor prior to d/c
Cont statin
Diabetes with management per primary service
Await records from Dr. Dougherty's office.
HPI 03/05/2024:
Patient is an 88-year-old male with past medical history significant for hypertension, hyperlipidemia, sleep apnea, BPH, kidney stones who presents to emergency department 03/05/2024 with complaints of shortness of breath, dizziness and feeling off
for several days. Patient was seen in ED in late January 2024 and treated for for UTI. [place] better however earlier this week patient started noting increased weakness, fatigue, lower extremity edema, shortness of breath, orthopnea and PND. He
complained of insomnia to his primary care physician and was prescribed Klonopin. Woke up feeling off 03/04/2024 and was evaluated in emergency department. It was felt to be side effect of the medication. He presents back 03/05/2024 with complaints
of ongoing fatigue, weakness, dizziness and shortness of breath. Patient was noted to be hypertensive with blood pressure of 170/106. EKG showed sinus rhythm at 81 bpm. Chest x-ray small right pleural effusion with underlying atelectasis versus
pneumonia at right lung base. proBNP noted to be elevated at 14,200. Troponin 0.074. Patient was provided IV Lasix 40 mg x 1 in emergency department. Patient denies prior history of coronary artery disease, heart failure. He does follow with
Dr. Ben Dougherty of [facility] cardiology
Progress Note - Ict Trainer
Subjective
Date of Service: March 07, 2024
breathing is improved. Has lost 13 lbs. no chest pains.
Objective
Labs:
03/06/24 07:15
03/07/24 06:01
Labs
Hgb 15.2 g/dL (13.0-18.0) 03/06/24 07:15
Hct 44.5 % (39.0-52.0) 03/06/24 07:15
Plt Count 245 10^3/uL (130-400) 03/06/24 07:15
Sodium 139 mmol/L (135-145) 03/07/24 06:01
Potassium 3.0 mmol/L (3.5-5.1) L 03/07/24 06:01
BUN 21 mg/dl (9-20) H 07/14/24 06:01
Creatinine 0.9 mg/dL (0.7-1.3) 03/07/24 06:01
Glucose 92 mg/dl (70-99) 03/07/24 06:01
Troponins
03/05/24 03/05/24 03/06/24
11:19 17:02 00:11
Troponin I 0.074 H* 0.075 H* 0.089 H*
03/06/24 03/06/24 03/06/24
07:15 12:00 18:00
Troponin I 0.087 H* Cancelled Cancelled
Vital Signs and I&O:
Vital Signs
Temp Pulse Resp BP Pulse Ox
98.6 F 54 18 128/68 95
03/07/24 11:09 03/07/24 11:09 03/07/24 11:09 03/07/24 11:09 03/07/24 11:09
Vital Signs
Temp Pulse Resp BP Pulse Ox
98.6 F 54 18 128/68 95
03/07/24 11:09 03/07/24 11:09 03/07/24 11:09 03/07/24 11:09 03/07/24 11:09
Intake & Output
03/05/24 03/06/24 03/07/24 03/08/24
06:59 06:59 06:59 06:59
Intake Total 240 / 240 1080 / 1080
Output Total 300 / 300 3575 / 3575
Balance -60 / -60 -2495 / -2495
Physical Exam
Physical Exam
GEN: No distress, awake, Ox3
HEENT: supple, anicteric, mmm
LUNGS: CTA, no wheezes/rales
CV: Reg, S1/S2, 1/6 syst LSB, no gallop
ABD: soft, BS+, NT/ND
EXT: +1 edema
NEURO: Gross non-focal
SKIN: No rash
[2024-03-07 15:12] VITALS: BP 144/87
--- NOTE | 2024-03-07 16:22 | CM ---
CM met with pt, spouse and granddtr bedside
[place] and [place]
Pt is independent at baseline w/o an ADs, drives+
Has SPC and WW for use PRN
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
PCP- Nigel Curry
Rx- Juanjo manley
PT/OT following- VN vs outpt
Discharge Disposition- home with VN vs outpt
[2024-03-07 16:34] LABS: Glucose - Point of Care 137 mg/dl (70-99)
[2024-03-07] MEDS: LOVENOX 40 MG SC (16:56)
[2024-03-07] MEDS: XANAX 0.25 MG PO (19:38)
[2024-03-07] MEDS: NEURONTIN 200 MG PO ×3 (19:38→19:40)
[2024-03-07] MEDS: LIPITOR 10 MG PO (19:39)
[2024-03-07] MEDS: COZAAR 100 MG PO (19:39)
[2024-03-07] MEDS: MOBIC 15 MG PO (19:40)
[2024-03-07] MEDS: GLUCOPHAGE 1000 MG PO (19:41)
[2024-03-07] MEDS: ASPIR LOW (ENTERIC COATED) 81 MG PO (19:41)
[2024-03-07 19:44] VITALS: BP 134/71
[2024-03-07 21:44] LABS: Glucose - Point of Care 119 mg/dl (70-99)
[2024-03-07 23:35] VITALS: BP 120/63
[2024-03-08 03:36] VITALS: BP 132/58
[2024-03-08 05:57] VITALS: BMI 28.8
[2024-03-08 07:40] VITALS: BP 157/74
[2024-03-08 07:45] LABS: Glucose - Point of Care 147 mg/dl (70-99)
[2024-03-08] MEDS: NOVOLOG FLEXPEN-LOW RESISTANCE SC (07:50)
--- NOTE | 2024-03-08 08:28 | W.PN.CARDCBS ---
Addendum entered and electronically signed by Jose Saldaña DO 03/08/24 10:37:
I saw and examined the patient.
The Kettle Loader's note was reviewed and I agree with the note.
Comment:
Plan:
Cont IV diuresis and transition to oral over next 24 hrs.
Echo pending.
New to Coreg
Cont losartan.
HF teaching
He feels much improved.
Med tx of nonMI trop
Follow up with his outside outpatient clerk.
Original Note:
Today's Communication / Plan
-
Ongoing IV diuresis
Labs pending, will probably need more potassium
Echo pending
Impression / Plan
-
PCP: Alexi Johnson
Garden Equipment Mechanic: Ben Dougherty, [facility] Cardiology
Impression:
Presents 03/05/2024 with shortness of breath, dizziness, weakness and brain fog
Acute HFpEF
Hypertensive urgency
Elevated Troponin 0.089
Type 2 DM with diabetic neuropathy
HTN
Hyperlipidemia
Syncope 2013
Sleep apnea
BPH status post partial prostatectomy October 2022
Urinary retention with hx UTI
Bladder stones
Bacterial parostitis
Right second toe amputation
Left total knee replacement
Back surgery
Hypokalemia
Outpatient monitor/CardioNet 2014: Normal sinus rhythm/sinus bradycardia, no complex arrhythmias
Echo 2013: EF 60 to 65% with mild AI
Echo 03/08/24: Report pending
Plan:
-Weight is down 15 lbs this admission with Lasix 40 mg IV BID diuresis. Patient was not taking a diuretic prior to admission. Patient should be discharged to home on at least Lasix 40 mg PO daily.
-Labs pending for 03/08/24. Potassium was as low as 3.0 on 03/08/24. Patient was given KCl 40 meq PO x1 03/07/24. Magnesium level pending for 03/08/24.
-HF is a new diagnosis. Echo pending
-Outpatient dose of losartan 100 mg daily has been continued.
-New to Coreg 3.125 mg BID
-Pending echo consider SGLT-2 and spironolactone
-Troponin peaked at 0.089 in the setting of acute HF and HTN urgency. Will manage as a nonischemic myocardial injury Troponin elevation.
HPI 03/05/2024:
Patient is an 88-year-old male with past medical history significant for hypertension, hyperlipidemia, sleep apnea, BPH, kidney stones who presents to emergency department 03/05/2024 with complaints of shortness of breath, dizziness and feeling off
for several days. Patient was seen in ED in late January 2024 and treated for for UTI. [place] better however earlier this week patient started noting increased weakness, fatigue, lower extremity edema, shortness of breath, orthopnea and PND. He
complained of insomnia to his primary care physician and was prescribed Klonopin. Woke up feeling off 03/04/2024 and was evaluated in emergency department. It was felt to be side effect of the medication. He presents back 03/05/2024 with complaints
of ongoing fatigue, weakness, dizziness and shortness of breath. Patient was noted to be hypertensive with blood pressure of 170/106. EKG showed sinus rhythm at 81 bpm. Chest x-ray small right pleural effusion with underlying atelectasis versus
pneumonia at right lung base. proBNP noted to be elevated at 14,200. Troponin 0.074. Patient was provided IV Lasix 40 mg x 1 in emergency department. Patient denies prior history of coronary artery disease, heart failure. He does follow with
Dr. Ben Dougherty of [facility] cardiology
Progress Note - Garden Equipment Mechanic
Subjective
Date of Service: March 08, 2024
He feels much better compared to admission
Objective
Labs:
Labs
Hgb 15.2 g/dL (13.0-18.0) 03/06/24 07:15
Hct 44.5 % (39.0-52.0) 03/06/24 07:15
Plt Count 245 10^3/uL (130-400) 03/06/24 07:15
Sodium 139 mmol/L (135-145) 03/07/24 06:01
Potassium 3.0 mmol/L (3.5-5.1) L 03/07/24 06:01
BUN 21 mg/dl (9-20) H 03/07/24 06:01
Creatinine 0.9 mg/dL (0.7-1.3) 03/07/24 06:01
Glucose 92 mg/dl (70-99) 03/07/24 06:01
Troponins
03/05/24 03/05/24 03/06/24
11:19 17:02 00:11
Troponin I 0.074 H* 0.075 H* 0.089 H*
03/06/24 03/06/24 03/06/24
07:15 12:00 18:00
Troponin I 0.087 H* Cancelled Cancelled
Vital Signs and I&O:
Vital Signs
Temp Pulse Resp BP Pulse Ox
97.7 F 70 18 132/58 98
03/08/24 03:36 03/08/24 03:36 03/08/24 03:36 03/08/24 03:36 03/08/24 08:00
Vital Signs
Temp Pulse Resp BP Pulse Ox
97.7 F 70 18 132/58 98
03/08/24 03:36 03/08/24 03:36 03/08/24 03:36 03/08/24 03:36 03/08/24 08:00
Intake & Output
03/06/24 03/07/24 03/08/24 03/09/24
06:59 06:59 06:59 06:59
Intake Total 240 / 240 1080 / 1080 1020 / 1020
Output Total 300 / 300 3575 / 3575
Balance -60 / -60 -2495 / -2495 1020 / 1020
Physical Exam
Physical Exam
GEN: AAOx3
HEENT: MMM
LUNGS: CTA B/L
CV: SR on tele
ABD: ND
EXT: No edema B/L
NEURO: Gross non-focal
SKIN: No rash
--- NOTE | 2024-03-08 08:48 | W.PN.HOSP.TC ---
Addendum entered and electronically signed by Brittany Smith MD 03/08/24 18:12:
I saw and evaluated the patient independently. I reviewed the resident�s note and agree with findings and plan as documented by Dr. Palmer.
GENERAL: well developed, well nourished, male in no apparent distress
HEENT: NC/AT
HEART: regular rate and rhythm, +S1, +S2
LUNGS : clear to auscultation bilaterally
ABDOM: soft, nontender, nondistended, + bowel sounds
EXT: no cyanosis, clubbing, or edema--significnat varicose veins bilateral legs
NEUROLOGIC: grossly intact
Acute mixed CHF exacerbation --previously unknown EF but ECHO shows 35-40% along with stage II diastolic dysfunction--weights down (6.8kg loss since admission)--daily weights, I/Os--fluid restriction--apprec cards--IV lasix--coreg started
Non-ischemic myocardial injury--No complaints of chest pain--Elevated troponin 0.08., Repeat this AM 0.06
Hypokalemia--replete
Hyperlipidemia-- Stable--cont statin
Essential hypertension--Stable--Losartan continued, Coreg started for HF
Type 2 diabetes: Stable--cont metformin and DM diet
Insomnia: Monitoring--Trazodone continued
DVT prophylaxis--Lovenox
CODE STATUS--Full code
Original Note:
Today's Communication/Plan
-
IV diuresis. Convert to PO tomorrow
Assessment / Plan
Assessment / Plan
-Acute CHF exacerbation - unknown EF -monitoring
BNP was 80818 on 03/05, will recheck values
Chest x ray with Small right-sided pleural effusion with underlying atelectasis versus interstitial pneumonia at the right lung base
Strict ALVAREZ
Daily weight: 98.88kg (6.8kg loss since admission)
Fluid restriction
Continue Lasix IV 40 Mg BID, will transition to PO tomorrow
Cardiology input appreciated, Coreg started 3.125 BID
Echo with mixed systolic and diastolic dysfunction. LV 35-40%
Follow Cr -steady at 0.9 on 03/08
- Non-ischemic myocardial injury
No complaints of chest pain
Elevated troponin 0.08., Repeat this AM 0.06
-Hypokalemia: Monitoring
Patient's potassium was 3.0 on 03/07 � repleted
- Hyperlipidemia: Stable
Statin continued
- Essential hypertension: Stable
Losartan continued, Coreg started for HF
Improved blood pressure since admission.
- Type 2 diabetes: Stable
Sliding scale
Carb controlled diet
- Insomnia: Monitoring
Trazodone continued
- DVT prophylaxis:
Lovenox subcutaneous
# CODE STATUS
-Full code
Anticipated Discharge: Within 24 hours
Subjective/Interval History
-
Date of Service: March 08, 2024
Pt feels his symptoms have improved. Noted episode of SOB this morning at rest.
Objective Data
-
Labs:
Laboratory Results
03/08/24
06:00
WBC Pending
Hgb Pending
Hct Pending
Plt Count Pending
Sodium Pending
Potassium Pending
Chloride Pending
Carbon Dioxide Pending
BUN Pending
Creatinine Pending
Glucose Pending
Calcium Pending
Total Bilirubin Pending
AST Pending
ALT Pending
Alkaline Phosphatase Pending
Vital Signs:
Vital Signs
Temp Pulse Resp BP Pulse Ox
97.7 F 70 18 132/58 98
03/08/24 03:36 03/08/24 03:36 03/08/24 03:36 03/08/24 03:36 03/08/24 08:00
I&O
03/07/24 03/08/24 03/09/24
06:59 06:59 06:59
Intake Total 1080 / 1079 1020 / 1020
Output Total 3575 / 3575
Balance -2495 / -2495 1020 / 1020
Review of Systems
-
History Source: Patient
Respiratory: Reports No Symptoms; Denies Cough or Trouble Breathing
Cardiac: Reports No Symptoms; Denies Chest Pain or Palpitations
Musculoskeletal: Reports Edema
Neuro: Denies Dizzy or Headache
Physical Exam
-
HEENT: Normocephalic and Atraumatic
Respiratory: Clear to Auscultation and Non Labored Respirations; Negative Wheezes, Rales, Rhonchi or Crackles
Cardiac: Regular Rhythm, S1/S2 and Murmur (mild systolic murmur)
Musculoskeletal: No Clubbing, No Cyanosis, Edema, Right Lower Extrem (1+) and Edema, Left Lower Extrem (1+)
Skin: Warm and Dry
Neuro: Awake, Alert and Oriented
Psych: Calm
[2024-03-08] MEDS: LASIX IV (09:03)
[2024-03-08] MEDS: COREG 3.125 MG PO ×2 (09:03→20:44)
[2024-03-08 10:27] LABS: ALT (SGPT) 28 U/L (0-50); AST (SGOT) 26 U/L (17-59); Alkaline Phosphatase 88 U/L (38-126); Blood Urea Nitrogen 21 mg/dl (9-20); Calcium 9.4 mg/dl (8.4-10.2); Carbon Dioxide 26 mmol/L (22-30); Chloride 99 mmol/L (98-107); Estimated Creatinine Clearance 67 ml/min; Glucose 177 mg/dl (70-99); Magnesium 1.6 mg/dl (1.6-2.3); Potassium 3.6 mmol/L (3.5-5.1); Sodium 139 mmol/L (135-145); Total Bilirubin 1.9 mg/dl (0.2-1.3); Total Protein 6.5 g/dl (6.3-8.2); eGFR > 60.00
[2024-03-08] MEDS: LASIX 40 MG IV ×2 (10:37→16:37)
[2024-03-08 11:22] VITALS: BP 144/74
[2024-03-08 11:57] LABS: Glucose - Point of Care 159 mg/dl (70-99)
[2024-03-08 12:24] LABS: Hematocrit 45.9 % (39.0-52.0); Hemoglobin 15.4 g/dL (13.0-18.0); Mean Corp Hgb Conc. 33.6 g/dL (33.0-37.0); Mean Corpuscular Hgb 31.7 pg (27.0-31.0); Mean Corpuscular Volume 94.4 fL (80.0-94.0); Mean Platelet Volume 10.7 fL (7.4-10.4); Platelet Count 238 10^3/uL (130-400); Red Blood Cell Count 4.86 10^6/uL (4.70-6.10); Red Cell Dist. Width 15.9 % (11.5-14.5); White Blood Cell Count 10.5 10^3/uL (4.8-10.8)
[2024-03-08] MEDS: NOVOLOG FLEXPEN-LOW RESISTANCE 1 UNITS SC ×2 (12:56→17:22)
[2024-03-08 15:23] VITALS: BP 137/83
[2024-03-08] MEDS: TYLENOL 650 MG PO (16:03)
--- NOTE | 2024-03-08 16:14 | CM ---
Patient seen at bedside with physician. Patient plan is to return home with no needs. Patient c/o of SOB today. Plan for discharge home with no needs vs home with VN pending further follow up with PT/OT. Today recommendation is for home PT vs
outpatient PT. CM will continue to follow for discharge planning needs.
Plan; home with VN vs home with no needs
--- NOTE | 2024-03-08 16:52 | W.PN.UPDATE ---
Update Note
Progress Note Update
Called and updated patient's for 28:40 min. Reviewed echo in detail explaining EF, MR and AI. Talked about CM is a new diagnosis and possible etiologies including CAD. Talked about medical therapy including the continuation of outpatient dose
of losartan and the addition of Coreg. Talked about possible ischemic work-up and made a plan to proceed with medical therapy for 3 months and then recheck echo. If EF does not improve with medical therapy then they might be interested in a cath.
Reviewed h/o HORACIO and right heart changes and he does wear CPAP, but his is going to call Dr. Johnson's office now and arrange for a repeat sleep study. Patient's is asking to transition care and would like hospital follow up appt to be
with our office, understands initial hospital follow-up with [employer]INGS [employer]KER/PA and then long-term with Dr. Garcia. Patient's is asking about Xanax for sleep at home since he did well with this last night. Patient's is also asking about investigation
into possible LE cellulitis, will ask Hospitalist service to investigate.
[2024-03-08 17:00] LABS: Glucose - Point of Care 159 mg/dl (70-99)
[2024-03-08] MEDS: LOVENOX 40 MG SC (17:22)
[2024-03-08] MEDS: COLACE 100 MG PO (17:22)
[2024-03-08 19:32] VITALS: BP 116/58
[2024-03-08] MEDS: ASPIR LOW (ENTERIC COATED) 81 MG PO (20:44)
[2024-03-08] MEDS: COZAAR 100 MG PO (20:44)
[2024-03-08] MEDS: MOBIC 15 MG PO (20:44)
[2024-03-08] MEDS: LIPITOR 10 MG PO (20:44)
[2024-03-08] MEDS: NEURONTIN 200 MG PO (20:44)
[2024-03-08] MEDS: GLUCOPHAGE 1000 MG PO (20:45)
[2024-03-08 21:04] LABS: Glucose - Point of Care 135 mg/dl (70-99)
[2024-03-08 23:37] VITALS: BP 115/57
[2024-03-09 03:28] VITALS: BP 138/80
[2024-03-09 06:00] VITALS: BMI 28.0
[2024-03-09 07:30] VITALS: BP 143/84
[2024-03-09 07:33] LABS: Hematocrit 41.8 % (39.0-52.0); Hemoglobin 13.9 g/dL (13.0-18.0); Mean Corp Hgb Conc. 33.3 g/dL (33.0-37.0); Mean Corpuscular Hgb 31.3 pg (27.0-31.0); Mean Corpuscular Volume 94.1 fL (80.0-94.0); Mean Platelet Volume 10.3 fL (7.4-10.4); Platelet Count 238 10^3/uL (130-400); Red Blood Cell Count 4.44 10^6/uL (4.70-6.10); Red Cell Dist. Width 15.9 % (11.5-14.5)
[2024-03-09 07:44] LABS: Glucose - Point of Care 149 mg/dl (70-99)
[2024-03-09 07:52] LABS: Blood Urea Nitrogen 22 mg/dl (9-20); Calcium 8.8 mg/dl (8.4-10.2); Carbon Dioxide 31 mmol/L (22-30); Chloride 98 mmol/L (98-107); Estimated Creatinine Clearance 60 ml/min; Glucose 116 mg/dl (70-99); Potassium 3.2 mmol/L (3.5-5.1); Sodium 138 mmol/L (135-145); eGFR > 60.00
[2024-03-09] MEDS: NOVOLOG FLEXPEN-LOW RESISTANCE SC ×2 (08:56→11:23)
[2024-03-09] MEDS: ALDACTONE 12.5 MG PO (10:15)
[2024-03-09] MEDS: LASIX 40 MG PO (10:15)
[2024-03-09] MEDS: COREG 3.125 MG PO (10:16)
[2024-03-09] MEDS: FARXIGA 10 MG PO (10:16)
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
[2024-03-09 11:21] LABS: Glucose - Point of Care 124 mg/dl (70-99)
[2024-03-09 11:37] VITALS: BP 136/67
[2024-03-09] MEDS: KCL 40 MEQ PO (12:21)
--- NOTE | 2024-03-09 12:52 | W.PN.HOSP.TC ---
Addendum entered and electronically signed by Brittany Smith MD 03/09/24 13:38:
I saw and evaluated the patient independently. I reviewed the resident�s note and agree with findings and plan as documented by Dr. Palmer.
GENERAL: well developed, well nourished, male in no apparent distress
HEENT: NC/AT
HEART: regular rate and rhythm, +S1, +S2
LUNGS : clear to auscultation bilaterally
ABDOM: soft, nontender, nondistended, + bowel sounds
EXT: no cyanosis, clubbing, or edema--significant varicose veins bilateral legs
NEUROLOGIC: grossly intact
Acute mixed CHF exacerbation --previously unknown EF but now ECHO shows 35-40% along with stage II diastolic dysfunction--weights down (9.4 kg loss since admission)--daily weights, I/Os--fluid restriction--apprec cards--PO lasix, coreg, aldactone,
asa--Farxiga might be too expensive
Non-ischemic myocardial injury--No complaints of chest pain--Elevated troponin 0.08., Repeat this AM 0.06
Hypokalemia--replete
Hyperlipidemia-- Stable--cont statin
Essential hypertension--Stable--Losartan continued, Coreg started for HF
Type 2 diabetes: Stable--cont metformin and DM diet
Insomnia: Monitoring--Trazodone continued
DVT prophylaxis--Lovenox
CODE STATUS--Full code
OK for d/c
Original Note:
Today's Communication/Plan
-
Discharge planning
Assessment / Plan
Assessment / Plan
-Acute CHF exacerbation - unknown EF -monitoring
BNP was 77837 on 03/05, will recheck values
Chest x ray with Small right-sided pleural effusion with underlying atelectasis versus interstitial pneumonia at the right lung base
Strict ALVAREZ
Daily weight: 96.275kg (9.4kg loss since admission)
Fluid restriction
Now on Lasix p.o. 40 mg twice daily
Cardiology input appreciated, Coreg started 3.125 BID, spironolactone 12.5 mg daily, Farxiga 10 mg daily, aspirin 81 mg daily
Echo with mixed systolic and diastolic dysfunction. LV 35-40%
Follow Cr - stable 1.0
- Non-ischemic myocardial injury
No complaints of chest pain
Elevated troponin 0.08., Repeat 0.06
-Hypokalemia: Monitoring
Patient's potassium was 3.0 on 03/07 � repleted. 3.2 today. Replete
Spironolactone started
- Hyperlipidemia: Stable
Statin continued
- Essential hypertension: Stable
Losartan continued, Coreg started for HF
Improved blood pressure since admission.
- Type 2 diabetes: Stable
Sliding scale
Carb controlled diet
- Insomnia: Monitoring
Trazodone continued
- DVT prophylaxis:
Lovenox subcutaneous
# CODE STATUS
-Full code
Anticipated Discharge: Today
Subjective/Interval History
-
Date of Service: March 09, 2024
Patient had excellent sleep. Marked improvement in symptoms. Patient feels he is ready to go home
Objective Data
-
Labs:
Laboratory Results
03/09/24
06:30
WBC 10.0
Hgb 13.9
Hct 41.8
Plt Count 238
Sodium 138
Potassium 3.2 L
Chloride 98
Carbon Dioxide 31 H
BUN 22 H
Creatinine 1.0
Glucose 116 H
Calcium 8.8
Vital Signs:
Vital Signs
Temp Pulse Resp BP Pulse Ox
97.7 F 62 18 136/67 95
03/09/24 11:37 03/09/24 11:37 03/09/24 11:37 03/09/24 11:37 03/09/24 11:37
I&O
0703/09/24 03/10/24
06:59 06:59 06:59
Intake Total 1020 / 1020 1200 / 1200
Output Total 225 / 225
Balance 1020 / 1020 975 / 975
Review of Systems
-
History Source: Patient
Constitutional: Denies Sleep Disturbance
Respiratory: Reports No Symptoms; Denies Cough or Trouble Breathing
Cardiac: Reports No Symptoms; Denies Chest Pain or Palpitations
Abdomen/GI: Reports No Symptoms; Denies Abdominal Pain, Nausea, Vomiting, Diarrhea or Constipated
Genitourinary: Reports No Symptoms; Denies Dysuria or Difficulty Voiding
Musculoskeletal: Reports Edema (R LE)
Physical Exam
-
General: Well Developed, No Apparent Distress and Comfortable
HEENT: Normocephalic and Atraumatic
Respiratory: Clear to Auscultation and Non Labored Respirations; Negative Wheezes, Rales, Rhonchi or Crackles
Cardiac: Regular Rhythm and S1/S2; Negative Murmur or Rub
GI: Soft, Nontender, Nondistended and Normal Bowel Sounds
Musculoskeletal: Edema, Right Lower Extrem (1+)
Skin: Warm and Dry
Neuro: Awake, Alert and Oriented
Psych: Calm
--- NOTE | 2024-03-09 13:29 | CM ---
Addendum entered by Sarah López 03/09/24 13:43:
Daughter to picker tender patient around supper time.
Original Note:
Patient seen at bedside. Patient to go home today, IMM completed and signed form placed on chart. CM called to pharmacy to confirm cost of Farxiga and per Juanjo it is 413.91$ CM updated physicians and called to patient to update patient. CM
discussed with and she indicated that the cost is prohibitive. CM updated physician. Patient requested [facility] for PT/OT follow up. CM updated Liaison and they will be following to assess. CM will continue to follow for discharge planning
needs.
Plan; home with [facility] pending acceptance
--- NOTE | 2024-03-09 14:34 | VNURNOTE ---
Home Health Liaison met with patient and at bedside to discuss [facility] nurse/therapy, visits, schedule and homebound status. Patient is agreeable and understands that visits at home will be 1-3 x per week to assess and teach medical management.
[facility] brochure provided with contact information. Patient is aware that [facility] will contact them for start of care a few days after discharge from . [facility] referral completed in [facility].
[2024-03-09 15:20] VITALS: BP 121/75
--- NOTE | 2024-03-09 15:48 | PTCARENOTE ---
RN flow bar machine operator-Patient cleared for d/c. Patient provided with d/c instructions. Patient removed iv independently and took off monitor. Patient states that he ordered dinner and would not be leaving until 430 after dinner.
--- NOTE | 2024-03-09 18:08 | W.DCSUMMARY ---
Addendum entered and electronically signed by Brittany Smith MD 03/09/24 19:39:
Read, reviewed, and agree. See same day progress note for additional details. Time spent coordinating care, DC planning, review of DC plan of care with resident, transition of care, review of records in EMR, med rec, consults, notes, d/w
consultants, nursing, family, and CM = 20 mins.
Original Note:
Discharge Summary
Discharge Data
Date of Admission: 03/05/24
Date of Discharge: 03/09/24
-
Pending Results: No
Hospital Course
Discharge Physician: Jayshree Palmer MD; Brittany Smith MD
Primary discharge diagnosis: Acute mixed CHF exacerbation, nonischemic myocardial injury, hypokalemia
Chronic conditions prior to admission: Hyperlipidemia, essential hypertension, type 2 diabetes mellitus, insomnia
Hospital Course: 88-year-old male with history of hypertension, hyperlipidemia, GERD, [id number] diabetes mellitus, sleep apnea, BPH, kidney stones, who presented to ED on 03/05 with dizziness, generalized weakness, shortness of
breath, 3-4 pound weight gain within the past month and worsening bilateral lower extremity edema. Upon arrival, he was hypertensive 170/106 and rest of vitals remained stable. Troponin was elevated at 0.074 upon arrival but stayed relatively
stable per trends. proBNP was elevated at 14,200. He was started on IV diuresis in the ED which was continued through admission, with close monitoring of kidney function, daily weights, fluid intake and output. Chest x-ray revealed small
right-sided pleural effusion with underlying atelectasis versus interstitial pneumonia of the right lung base. EKG revealed sinus rhythm with premature supraventricular complexes and nonspecific ST and T wave abnormality.
Cardiology was consulted. Echocardiogram on 03/08 revealed mild to moderately reduced left ventricular systolic function, global hypokinesis, left ventricular ejection fraction 35 to 40% and stage II diastolic dysfunction.
He was found to be hypokalemic 2 days into his stay, and this was repleted.
Hemoglobin A1c was 6.8.
All home medications were continued during stay. Per cardiology recommendation carvedilol, Farxiga, spironolactone, aspirin 81 mg, with added to his regimen. Unfortunately due to inadequate coverage for Farxiga, this was discontinued and he was
discharged on other medications plus his usual home meds. He will need basic metabolic panel and magnesium labs in 1 week from discharge. Should follow-up with PCP within 1 week of discharge, and with cardiology.
Relevant Data:
Chest x-ray 03/05: Small right-sided pleural effusion with underlying atelectasis versus interstitial pneumonia in the right lung base
ECG 03/05: Sinus rhythm with premature supraventricular complexes. Nonspecific ST and T wave abnormality.
Echocardiogram 03/08: normal left ventricular size. Mild concentric left ventricular hypertrophy. Mild to moderately reduced left ventricular systolic function. Global hypokinesis. LV ejection fraction is 35-40 % visually. Stage II diastolic
dysfunction suggestive of abnormal relaxation and increased filling pressures. Mitral valve opens normally. Thickened mitral valve leaflets. Mitral annular calcification. Mitral sclerosis without stenosis. Mild mitral regurgitation. Severely
dilated left atrium. Trileaflet aortic valve. Thickened aortic valve with normal leaflet excursion. No aortic stenosis. Mild aortic regurgitation. Right ventricle appears dilated and likely hypokinetic. Mildly dilated aortic root. 3.9 cm at sinus
of Valsalva. Ascending aorta 4.0 cm.
Hemoglobin A1c: 6.8
Consults:
Cardiology
Discharge Plan
-
Patient Disposition: Home (Routine Discharge)
Discharge Diagnosis/Procedures: Acute heart failure exacerbation, nonischemic myocardial injury, hypokalemia, hypertension
Condition: Good
Diet: 2 Gram Sodium and Restrict fluids to 48 oz
Activity: As tolerated
Driving Restrictions: As prior to admission
Blood Work: BMP/mag in 1 week
Other Services: VN
Specialty Instructions: Weigh Daily- Call MD for wt gain/loss 3 lbs overnight/5 lbs in 1 week
Instructions: *PCP/Other Commercial Housekeeper Heart Failure Instructions
Referrals:
Юлия Pabon CRNP [Specified Professional Personl] - 03/15/24 2:40 pm (You have a cardiology follow-up appointment at the [place] office with Dr. Garcia's nurse practitioner, Юлия. Please call with questions)
Alexi Johnson MD [Family Provider] -
Additional Discharge Medication Instructions: Take carvedilol 3.125 mg twice daily
Take furosemide 40 mg twice daily
For spironolactone 25mg, take half a tablet (12.5 mg) once daily
Please follow up with PCP within 1 week of discharge.
You will need blood work: Basic metabolic panel and magnesium in 1 week, to be sent to your PCP (Alexi Johnson MD) and car seat maker's office (KLEBER Wolf)
Prescriptions:
New
furosemide 40 mg Tablet
40 mg PO BID AT 0800,1600 30 Days Qty: 60 0RF
spironolactone 25 mg Tablet
12.5 mg PO DAILY 30 Days Qty: 30 0RF
carvedilol 3.125 mg Tablet
3.125 mg PO BID 30 Days Qty: 30 0RF
Continued
atorvastatin 10 mg Tablet
10 mg PO HS
meloxicam 15 mg Tablet
15 mg PO HS
metformin 1,000 mg Tablet
1,000 mg PO HS
gabapentin 100 mg capsule
200 mg PO HS
aspirin 81 mg Tablet,Delayed Release (Dr/Ec)
81 mg PO HS
losartan 100 mg tablet
100 mg PO HS
trazodone 50 mg Tablet
50 mg PO HS
ibuprofen [Advil] 200 mg Tablet
200 mg PO BIDPRN PRN (Reason: mild pain)
melatonin 10 mg Tablet
10 mg PO HS PRN (Reason: Sleep)
Discharge Orders:
Discharge Patient (As Directed); Ordered 03/09/24
Ordered By: Jayshree Palmer
Discharge Date and Time
Discharge Date/Time: 03/09/24 17:09
Print Language: OCCITAN
--- NOTE | 2024-03-10 12:38 | PN.CDI ---
Addendum entered and electronically signed by Brittany Smith MD 03/10/24 19:09:
Documentation is complete.
Original Note:
CDI
- -
CDI:
Physician Documentation Request
Admit Date: 03/05/24 14:02
Dear Doctor Estela,
Please review the following and provide your response in the progress notes.
Clinical Indicators:
- 03/09 DC Summary 'Acute mixed CHF exacerbation'
- 03/09 Cardiology 'Acute HFrEF'
- 03/08 Echo EF 35-40%
- 'Mild to moderately reduced left ventricular systolic function'
- 'Stage II diastolic dysfunction suggestive of abnormal relaxation and increased filling pressures'
In an attempt to clarify potentially conflicting documentation, please clarify the type of Acute CHF:
Acute systolic CHF
Acute combined systolic and diastolic CHF
Other
Use of terms such as suspected, likely, concern for, or probable (associated with a specific diagnosis that is being evaluated, monitored, or treated as if it exists) are acceptable and can be coded in the inpatient setting, when documented at the
time of discharge.
Thank you,
Carin Salas RN
CDI Specialist
Please use your independent medical judgment in providing your response.
--- NOTE | 2024-03-10 14:01 | W.HF.CON ---
Heart Failure
- LV Function
Left ventricular function study result: LV Ejection fraction >35% - 40%
Ejection Fraction Percentage: 35-40
- ARNI
Patient already on ARNI: No
Heart Failure ARNI Contraindication: Patient Refusal
- ACEI/ARB
Patient already on ACEI/ARB: Yes
- Beta Shaunna
Patient already on Evidence Based Beta Shaunna: Yes
- Mineralocorticord Receptor Antagonist
Patient already on MRA: Yes
- SGLT-2 Inhibitor
Patient already on SGLT-2 Inhibitor: Yes
- NYHA CHF Classification
NYHA CHF Classification Level: Class III - Symptoms w/ min exertion, interferes w/ nml daily activity
- ACC/AHA Stage
ACC/AHA Stage: Stage C: Symptomatic Heart Failure
== END 2024-03-09 17:09 | disposition home health service (06) | DRG 291 ==
LOC: 4 EAST ACU 14:02
PROVIDERS: Nurse Practitioner Family; Registered Nurse; Student in an Organized Health Care Education/Training Program; ADMITTING PHYSICIAN Internal Medicine; ATTENDING PHYSICIAN Internal Medicine; CONSULT PHYSICIAN Internal Medicine Cardiovascular Disease; EMERGENCY PHYSICIAN Emergency Medicine; FAMILY PHYSICIAN Internal Medicine
DX: I11.0 Hypertensive heart disease with heart failure (principal); I50.41 Acute combined systolic (congestive) and diastolic (congestive) heart failure; J98.11 Atelectasis; K21.9 Gastro-esophageal reflux disease without esophagitis; E78.00 Pure hypercholesterolemia, unspecified; N40.1 Benign prostatic hyperplasia with lower urinary tract symptoms; E78.5 Hyperlipidemia, unspecified; G47.00 Insomnia, unspecified; I5A Non-ischemic myocardial injury (non-traumatic); I16.0 Hypertensive urgency; R33.8 Other retention of urine; I42.9 Cardiomyopathy, unspecified; E87.6 Hypokalemia; G47.33 Obstructive sleep apnea (adult) (pediatric); E11.40 Type 2 diabetes mellitus with diabetic neuropathy, unspecified; Z96.652 Presence of left artificial knee joint; Z87.01 Personal history of pneumonia (recurrent); Z87.442 Personal history of urinary calculi; Z79.82 Long term (current) use of aspirin; Z79.84 Long term (current) use of oral hypoglycemic drugs; Z87.440 Personal history of urinary (tract) infections; Z89.421 Acquired absence of other right toe(s)
CPT/HCPCS: 71046; 80048; 80053; 80061; 82248; 82962; 83036; 83735; 83880; 84443; 84484; 85025; 85027; 93005; 93306; 96374; 97116; 97162; 99285

== ENCOUNTER → 2024-04-08 08:27 | Outpatient (REF) | payer MEDICARE, OTHER, SELFPAY | LOC: DHCBC/DCA 08:27 | PROVIDERS: ATTENDING PHYSICIAN Nurse Practitioner; FAMILY PHYSICIAN Internal Medicine | DX: I50.9 Heart failure, unspecified (principal); I42.8 Other cardiomyopathies; R06.02 Shortness of breath | CPT/HCPCS: 78452; 93017; A9500; J2785 ==

== ENCOUNTER → 2024-06-11 14:06 | Outpatient (REF) | payer MEDICARE, OTHER, SELFPAY | LOC: HWRCS 14:06 | PROVIDERS: ATTENDING PHYSICIAN Internal Medicine Cardiovascular Disease; FAMILY PHYSICIAN Internal Medicine | DX: I42.8 Other cardiomyopathies (principal) | CPT/HCPCS: 93306 ==

== ENCOUNTER → 2024-07-29 08:13 | Outpatient (REF) | payer MEDICARE, OTHER, SELFPAY | LOC: HWEVLT 08:13 | PROVIDERS: ATTENDING PHYSICIAN Radiology Diagnostic Radiology | DX: I83.892 Varicose veins of left lower extremity with other complications (principal) | CPT/HCPCS: 93971 ==

== ENCOUNTER → 2024-10-07 09:26 | Outpatient (REF) | payer MEDICARE, OTHER, SELFPAY | LOC: HWEVLT 09:26 | PROVIDERS: ATTENDING PHYSICIAN Radiology Vascular & Interventional Radiology | DX: I83.892 Varicose veins of left lower extremity with other complications (principal) | CPT/HCPCS: 36478; C1769 ==

== ENCOUNTER → 2024-10-20 11:34 | Outpatient (REF) | payer MEDICARE, OTHER, SELFPAY | LOC: HWEVLT 11:34 | PROVIDERS: ATTENDING PHYSICIAN Radiology Diagnostic Radiology | DX: I83.892 Varicose veins of left lower extremity with other complications (principal) | CPT/HCPCS: 93971 ==